=== PATIENT | female | born 1945 | race Caucasian/White ===

== ENCOUNTER 2018-03-05 16:04 | Inpatient (IN) | payer BC, MEDICARE ==
[2018-03-05 17:46] LABS: Albumin * 4.1 gm/dl (3.4-5.0); Anion Gap 13.3 mmol/L (6.8-13.8); Bilirubin, Total 0.4 mg/dL (0.0-1.1); Ca. Corrected For Albumin 9.5 mg/dL (8.4-10.2); Calcium * 9.9 mg/dL (7.9-10.9); Carbon Dioxide 30.8 mmol/L (24-32.6); Potassium 4.1 mmol/L (3.4-4.6)
[2018-03-05 18:14] LABS: Hemoglobin 13.4 gm/dL (12.5-16.0); Mean Cell Volume 87.7 fl (78-100); Mean Corpuscular Hemoglobin 29.4 pg (27-31); Mean Corpuscular Hgb Conc 33.5 g/dl (32-36); Mean Platelet Volume 11.6 fl (8-12.5); Neutrophil # 7.2 K/mm3 (1.3-6.0); Neutrophil % 72.2 % (42-75.0); Platelet Count 235 K/mm3 (150-450); Red Blood Count 4.56 M/mm3 (4.2-5.4); Red Cell Distribution Width 14.5 % (11.5-14.0)
[2018-03-05] MEDS ORDERED: DIATRIZOATE MEGLUMINE, SODIUM 30 ML BTL PO ONE (18:23)
[2018-03-05] MEDS ORDERED: DIATRIZOATE MEGLUMINE, SODIUM 30 ML BTL ONE (18:29)
--- NOTE | 2018-03-05 18:34 | ERNOTE ---
<Hugo Pierce - Last Filed: 03/05/18 18:24> Abdominal HPI - Narrative Date of Service: 03/05/18 - General Chief Complaint: Abdominal Pain Time Seen by Provider: 03/05/18 16:09 Source: patient Exam Limitations: no limitations - Immun/Allergies/Home Medications Home Medications: HOME MEDICATIONS Ascorbic Acid [Vitamin C] 1,000 mg PO DAILY 03/05/18 [Last Taken Unknown] Aspirin [Children's Aspirin] 81 mg PO DAILY 03/05/18 [Last Taken Unknown] Calcium Carbonate/Vitamin D3 [Calcium 600 + D3 Softgel] 1 each PO DAILY [Last Taken Unknown] Cholecalciferol (Vitamin D3) [Vitamin D] 400 unit PO DAILY 03/05/18 [Last Taken Unknown] Cyanocobalamin (Vitamin B-12) [Vitamin B-12] 500 mcg PO DAILY 03/05/18 [Last Taken Unknown] Insulin Degludec [Tresiba Flextouch U-100] 60 unit SQ DAILY 03/05/18 [Last Taken Unknown] Insulin Regular, Human [Novolin R] 100 unit SQ 03/05/18 [Last Taken Unknown] Levothyroxine Sodium [Synthroid] 75 mcg PO DAILY 03/05/18 [Last Taken Unknown] Losartan/Hydrochlorothiazide [Losartan-Hctz 100-25 mg Tab] 1 each PO DAILY 03/05 [Last Taken Unknown] Lovastatin [Altoprev] 80 mg PO DAILY 03/05/18 [Last Taken Unknown] Metoprolol Tartrate [Lopressor] 50 mg PO DAILY 03/05/18 [Last Taken Unknown] [place]-3 Fatty Acids/Fish Oil [Fish Oil 1,000 mg Capsule] 1 each PO DAILY [Last Taken Unknown] Omeprazole [Prilosec] 20 mg PO DAILY 03/05/18 [Last Taken Unknown] Oxybutynin Chloride [Ditropan Xl] 5 mg PO DAILY 03/05/18 [Last Taken Unknown] Pyridoxine HCl (Vitamin B6) [Vitamin B-6] 100 mg PO DAILY 03/05/18 [Last Taken Unknown] Turmeric Root Extract [Turmeric] 500 mg PO DAILY 03/05/18 [Last Taken Unknown] metFORMIN HCL [Metformin HCl] 1,000 mg PO BID 03/05/18 [Last Taken Unknown] - History of Present Illness Narrative: patient presents to the ED for abdominal pain. She relates that she has been having this for a couple of days but worse today. Because of her multiple abdominal surgeries she had called Dr Mancilla' office and has an appt but was told to go to the ER if her pain was worse. Her pain worsened today so she came to the ED. No fever or vomiting. She does have some issues with constipation but she has had a recent BM. This pain is in her mid abdomen/low abdomen. She has a hernia here but that hernia has not been bothering her. No CP or SOB. No fever. She feels this pain in her low back also. Worsened today. Nothing really seems to make it better or worse. Timing: constant, getting worse Quality: moderate Activities at Onset: none Modifying Factors - (Improves): Present: other - nothing Modifying Factors - (Worsens): Present: other - nothing Associated Symptoms: Absent: fever/chills, vomiting Prior Abdominal Problems: Absent: similar symptoms Prior Treatment: Absent: recently seen Review of Systems - Review of Systems Constitutional: Absent: fever Respiratory: Absent: shortness of breath Cardiology: Absent: chest pain Gastrointestinal/Abdominal: Present: See HPI Genitourinary: Absent: dysuria Neurological: Absent: weakness All Other Systems: All systems neg except as marked Medical History (Last Updated 03/05/18 @ 16:27 by Aravind Wilson RN) Diabetes mellitus GERD (gastroesophageal reflux disease) HTN (hypertension) History of colon cancer Hyperlipemia Hypothyroidism Umbilical hernia Surgical History: Surgical History (Last Updated 03/05/18 @ 16:27 by Aravind Wilson RN) History of cancer surgery Social History: Preferred Language [place] Physical Exam - Physical Exam General Appearance: Present: alert, no apparent distress Head Exam: Present: normal inspection, no evidence of injury Eye Exam: Normal inspection: bilateral, PERRL: bilateral Ears, Nose, Throat: Present: normal ENT inspection Neck: Present: normal inspection Respiratory: Present: no respiratory distress, normal breath sounds, no accessory muscle use, lungs clear Cardiovascular/Chest: Present: regular rate, rhythm, normal peripheral pulses Gastrointestinal/Abdominal: Present: normal bowel sounds, soft, other - there is an umbilical hernia but this is not specifically tender. No clear incarceration or strangulation. There is diffuse tendenress and firmness around this area in the mid abdomen. No guarding or rebound. No peritoneal signs Back Exam: Absent: CVA tenderness (R), CVA tenderness (L) Extremity Exam: Present: normal range of motion Neurological Exam: Present: alert, no motor/sensory deficits Skin Exam: Present: normal color, warm/dry ED Progress - Results and Orders Patient's Lab Results:: I have reviewed the patient's lab results. - Vital Signs Patient's Vital Signs:: I have reviewed the patient's vital signs. Vital Signs: Vital Signs 03/05/18 16:14 Temperature 36.4 C Pulse Rate 73 Respiratory Rate 14 Blood Pressure 216/61 H O2 Sat by Pulse Oximetry 98 - Progress/Reassessment Chief Complaint: Abdominal Pain Progress Note-Subjective: 03/05/18 18:[address] given her long intra-abdominal surgical history. CHecked out to Dr Bañuelos at shift change pending CT. - Transfer of Care Physician Sign Out: Hugo Pierce Receiving Physician: Tavo Bañuelos Pending Results: CT/MRI results Departure Clinical Impression: Partial small bowel obstruction Abdominal pain Qualifiers: Abdominal location: periumbilical Qualified Code(s): R10.33 - Periumbilical pain Urinary tract infection Qualifiers: Urinary tract infection type: acute cystitis Hematuria presence: without hematuria Qualified Code(s): N30.00 - Acute cystitis without hematuria - Departure Disposition: Still a patient Condition: Stable Referrals: Yanely Zavala FNP [Primary Care Provider] - <Tavo Bañuelos - Last Filed: 03/05/18 22:30> Medical History (Last Updated 03/05/18 @ 22:11 by Tavo Bañuelos DO) Fistula of large intestine Diabetes mellitus GERD (gastroesophageal reflux disease) HTN (hypertension) History of colon cancer Hyperlipemia Hypothyroidism Umbilical hernia Surgical History: Surgical History (Last Updated 03/05/18 @ 22:12 by Tavo Bañuelos DO) H/O ileostomy H/O resection of large bowel History of History of History of reversal of ileostomy History of cancer surgery Social History: Preferred Language [place] ED Progress - Vital Signs Vital Signs: Vital Signs 03/05/18 16:14 Temperature 36.4 C Pulse Rate 73 Respiratory Rate 14 Blood Pressure 216/61 H O2 Sat by Pulse Oximetry 98 - CT/Ultrasound CT/Ultrasound Narrative: CT abd/ pelvis with oral and IV contrast: IMPRESSION: MULTIPLE VENTRAL HERNIAS AT THE LEVEL OF THE UMBILICUS AND INFERIORLY. AGAIN, THESE CONTAIN LOOPS OF SMALL AND LARGE BOWEL WITH PARTIAL SMALL BOWEL OBSTRUCTION. Electronically signed by Hugo Balderas M.D.. - Progress/Reassessment Progress Note-Subjective: 03/05/18 22:12 CT results reviewed with patient and family. 03/05/18 22:27 Spoke with Mindy HUNG and she agrees with obs admit. Spoke with the patient and family again they also express agreement and understanding with obs admit.
[2018-03-05 20:56] LABS: Urine Bilirubin Negative (NEGATIVE); Urine Blood Negative /ul (NEGATIVE); Urine Ketone 5 mg/dL (NEGATIVE); Urine Nitrite Negative (NEGATIVE); Urine Protein 100 mg/dL (NEGATIVE); Urine Specific Gravity 1.025 SP.GR. (1.005-1.010); Urine Urobilinogen Normal (NORMAL)
[2018-03-05 21:06] LABS: Urine Appearance Cloudy (CLEAR); Urine Bacteria None Seen; Urine Color Yellow; Urine RBC None Seen /hpf (0-5); Urine WBC 25-50 /hpf (0-5)
--- NOTE | 2018-03-06 00:33 | HP ---
<Mindy Mercado - Last Filed: 03/06/18 03:54> Chief Complaint - Chief Complaint Date of Service: 03/06/18 Time of Service: 00:19 Chief Complaint: "Abdominal Pain". Source of HPI- Pt; reliable, ERP report History of Present Illness: Mrs. Cohen is a 72-yr-old [place] pt of Yan[facility] Stack[facility] with a PMH of: Anxiety, Arthritis, Asthma, Colon cancer, DM II, HTN, HLD, Lung cancer, Osteoporosis, & Rectal cancer. Pt states that around the afternoon hours today (03/05), she developed generalized abdominal pain and had a sensation of having discomfort from gas. She took milk of magnesia but got no relief. She states that she was concerned about her abdominal pain. She states that she had been advised in the past that due to multiple abdominal surgeries, she needed to be attentive to any abdominal pain symptom, and that she needed to seek medical care immediately. She denies the associated symptoms of n.v, fevers and chills. She reports that she had a normal bowel movement in the am of 03/05 and the prior day. She denies abdominal pain radiation. She had a bowel of cereal for breakfast and glucerna for lunch and was able to tolerate without any n/v and abdominal pain. However, after taking the oral contrast for abdominal CT, she started retching an hour later. She states that she had colon resection due to colon ca in 2007 with an ileostomy which was reversed [address] Mancilla at the [facility]. She has had abdominal hernia since then but states that she was not eligible for repair unless she was having complications from it (Will request for medical records). At the ED today, abdominal CT showed: partial small bowel obstruction & multiple ventral hernia at the level of umbilicus and inferiorly which contain loops of small & large bowel. Pt has not had any BMs but is passing flatus so far. She will be admitted for PSBO. I've consulted Dr. Vee on pt's case and he will evaluate the pt in am. Medical History (Last Updated 03/05/18 @ 22:11 by Tavo Bañuelos DO) Fistula of large intestine Diabetes mellitus GERD (gastroesophageal reflux disease) HTN (hypertension) History of colon cancer Hyperlipemia Hypothyroidism Umbilical hernia Surgical History: Surgical History (Last Updated 03/05/18 @ 22:12 by PERRI Harrell H/O ileostomy H/O resection of large bowel History of History of History of reversal of ileostomy History of cancer surgery Social History: Patient Lives/Resources Home Utilized Occupation Retired Preferred Language Micronesian Do you have any tenriism or Yes cultural preference? Smoking Status Former smoker Have you smoked in the past 12 No months Do you dip or chew tobacco No Review Of Systems (GEN) - Review of Systems Generalized/Overall Review: Absent: Weakness, Chills, Fever, Malaise EENTM: Absent: Eye Pain, Blurred Vision, Tearing Respiratory: Absent: Cough, Shortness of Breath, Orthopnea Cardiac: Absent: Chest Pain, Edema, Palpitations Abdominal: Present: Abdominal Pain. Absent: Nausea, Vomiting, Hematemesis, Constipation, Diarrhea, Bright blood from rectum Genitourinary: Absent: Burning, Itching, Urgency, Frequency, Dribbling, Incontinent Musculoskeletal: Absent: Joint Pain, Back Pain, Joint Swelling Neurological: Absent: Headache, Anxiety, Depressed, Emotional Problems Skin: Absent: Dryness, Lesions Endocrine: Absent: Intolerance to Cold, Increased Hunger, Increased Thirst Misc: All systems neg except as marked Allergies/Adverse Reactions: Allergies Allergy/AdvReac Type Severity Reaction Status Date / Time No Known Allergies Allergy Verified 03/06/18 01:16 Home Medications: HOME MEDICATIONS Ascorbic Acid [Vitamin C] 1,000 mg PO DAILY 03/05/18 [Last Taken 03/05/18] Aspirin [Children's Aspirin] 81 mg PO DAILY 03/05/18 [Last Taken 03/04/18] Calcium Carbonate/Vitamin D3 [Calcium 600 + D3 Softgel] 1 each PO DAILY [Last Taken 03/05/18] Cholecalciferol (Vitamin D3) [Vitamin D] 400 unit PO DAILY 03/05/18 [Last Taken 03/05/18] Cyanocobalamin (Vitamin B-12) [Vitamin B-12] 500 mcg PO DAILY 03/05/18 [Last Taken 03/05/18] Insulin Degludec [Tresiba Flextouch U-100] 60 unit SQ DAILY 03/05/18 [Last Taken Unknown] Insulin Regular, Human [Novolin R] See Protocol SQ PRN 03/05/18 [Last Taken 02/13] Levothyroxine Sodium [Synthroid] 75 mcg PO DAILY 03/05/18 [Last Taken 03/05/18] Losartan/Hydrochlorothiazide [Losartan-Hctz 100-25 mg Tab] 1 each PO DAILY 03/05 [Last Taken 03/05/18] Lovastatin [Altoprev] 80 mg PO DAILY 03/05/18 [Last Taken 03/05/18] Metoprolol Tartrate [Lopressor] 50 mg PO DAILY 03/05/18 [Last Taken 03/05/18] [place]-3 Fatty Acids/Fish Oil [Fish Oil 1,000 mg Capsule] 1 each PO DAILY [Last Taken 03/05/18] Omeprazole [Prilosec] 20 mg PO DAILY 03/05/18 [Last Taken 03/05/18] Oxybutynin Chloride [Ditropan Xl] 5 mg PO DAILY 03/05/18 [Last Taken 03/05/18] Pyridoxine HCl (Vitamin B6) [Vitamin B-6] 100 mg PO DAILY 03/05/18 [Last Taken 03/05/18] Turmeric Root Extract [Turmeric] 500 mg PO DAILY 03/05/18 [Last Taken 03/05/18] metFORMIN HCL [Metformin HCl] 1,000 mg PO BID 03/05/18 [Last Taken 03/05/18] Exam - Exam Vital Signs: Vital Signs - Last Taken Temp 36.6 C 03/05/18 22:50 Pulse 62 03/05/18 22:50 Resp 20 03/05/18 22:50 BP 159/64 H 03/05/18 22:50 Pulse Ox 97 03/05/18 22:50 Constitutional: Present: Alert, Oriented x3, Cooperative, No distress ENT Exam: Present: normal ENT inspection Eye Exam: bilateral eye: normal inspection, PERRL Neck: Present: non-tender, full range of motion, supple Back Exam: Present: normal inspection, no CVA tenderness Breasts: Present: Exam deferred Respiratory: Present: no respiratory distress, no accessory muscle use Cardiovascular/Chest: Present: normal peripheral pulses, regular rate, rhythm, no chest tenderness, no edema Abdomen: Present: tender - Lower abdomen, guarding, firm, hernia /Rectal: Present: Exam deferred Extremity: Present: normal range of motion, non-tender, normal inspection Skin Exam: Present: warm/dry, no cyanosis Lymphatic: Present: no adenopathy Neurologic: Present: alert, normal mood/affect, oriented x 3 Appearance: Present: appropriate appearance, appropriate insight Eye contact: Present: cooperative, good eye contact Thoughts: Present: normal thought pattern, no apparent hallucination Diagnostic Studies: Abnormal Lab Results 03/05/18 03/05/18 03/05/18 Range/Units 17:10 17:10 Unknown RDW 14.5 H (11.5-14.0) % Lymphocytes % 19.9 L (20-51) % Neutrophils # 7.2 H (1.3-6.0) K/mm3 Est GFR (Non-Af Amer) 58 L (60-130) mL/min Random Glucose 164 H (70-110) mg/dL Alkaline Phosphatase 38 L (50-170) U/L Urine Protein 100 H (NEGATIVE) mg/dL Prot Sulfosalicylic Acd 2+ H (0) mg/dL Ur Leukocyte Esterase 100 H (NEGATIVE) /ul Urine WBC 25-50 H (0-5) /hpf Laboratory Results WBC 10.0 K/mm3 (4.0-10.5) 03/05/18 17:10 RBC 4.56 M/mm3 (4.2-5.4) 03/05/18 17:10 Hgb 13.4 gm/dL (12.5-16.0) 03/05/18 17:10 Hct 40.0 % (37.0-47.0) 03/05/18 17:10 MCV 87.7 fl (78-100) 03/05/18 17:10 MCH 29.4 pg (27-31) 03/05/18 17:10 MCHC 33.5 g/dl (32-36) 03/05/18 17:10 RDW 14.5 % (11.5-14.0) H 03/05/18 17:10 Plt Count 235 K/mm3 (150-450) 03/05/18 17:10 MPV 11.6 fl (8-12.5) 03/05/18 17:10 Immature Gran % (Auto) 0.30 % (0.001-0.429) 03/05/18 17:10 Immature Gran # (Auto) 0.03 K/mm3 (0.000-0.0310) 03/05/18 17:10 Neutrophils % 72.2 % (42-75.0) 03/05/18 17:10 Lymphocytes % 19.9 % (20-51) L 03/05/18 17:10 Monocytes % 6.5 % (0.0-9) 03/05/18 17:10 Eosinophils % 0.8 % (0.0-3.0) 03/05/18 17:10 Basophils % 0.3 % (0.0-1.0) 03/05/18 17:10 Nucleated RBC % 0.0 k/mm3 (0-1) 03/05/18 17:10 Neutrophils # 7.2 K/mm3 (1.3-6.0) H 03/05/18 17:10 Lymphocytes # 1.99 k/mm3 (1.5-3.5) 03/05/18 17:10 Monocytes # 0.7 k/mm3 (0.0-1.0) 03/05/18 17:10 Eosinophils # 0.1 k/mm3 (0.0-0.7) 03/05/18 17:10 Absolute Basophils 0.0 k/mm3 (0.0-0.1) 03/05/18 17:10 Sodium 140 mmol/L (132-142) 03/05/18 17:10 Plasma Sodium 141 mmol/L (130-142) 03/05/18 17:10 Potassium 4.1 mmol/L (3.4-4.6) 03/05/18 17:10 Chloride 100 mmol/L (97-106) 03/05/18 17:10 Carbon Dioxide 30.8 mmol/L (24-32.6) 03/05/18 17:10 Anion Gap 13.3 mmol/L (6.8-13.8) 03/05/18 17:10 BUN 19 mg/dL (3-23) 03/05/18 17:10 Creatinine 1.00 mg/dL (0.4-1.4) 03/05/18 17:10 Est GFR (Non-Af Amer) 58 mL/min (60-130) L 03/05/18 17:10 BUN/Creatinine Ratio 19.0 (9.0-21.6) 03/05/18 17:10 Random Glucose 164 mg/dL (70-110) H 03/05/18 17:10 Calcium 9.9 mg/dL (7.9-10.9) 03/05/18 17:10 Calcium Adj for Albumin 9.5 mg/dL (8.4-10.2) 03/05/18 17:10 Total Bilirubin 0.4 mg/dL (0.0-1.1) 03/05/18 17:10 AST 28 U/L (0-48) 03/05/18 17:10 ALT 34 U/L (19-67) 03/05/18 17:10 Alkaline Phosphatase 38 U/L (50-170) L 03/05/18 17:10 Total Protein 8.0 gm/dL (6.2-8.2) 03/05/18 17:10 Albumin 4.1 gm/dl (3.4-5.0) 03/05/18 17:10 Lipase 103 U/L (73-393) 03/05/18 17:10 Urine Color Yellow 03/05/18 Unknown Urine Appearance Cloudy (CLEAR) 03/05/18 Unknown Urine pH 6.0 pH (5.0-7.0) 03/05/18 Unknown Ur Specific [place] 1.025 SP.GR. (1.005-1.010) 03/05/18 Unknown Urine Protein 100 mg/dL (NEGATIVE) H 03/05/18 Unknown Urine Glucose (UA) Negative mg/dL (NEGATIVE) 03/05/18 Unknown Urine Ketones 5 mg/dL (NEGATIVE) 03/05/18 Unknown Urine Blood Negative /ul (NEGATIVE) 03/05/18 Unknown Urine Nitrate Negative (NEGATIVE) 03/05/18 Unknown Urine Bilirubin Negative mg/dl (NEGATIVE) 03/05/18 Unknown Prot Sulfosalicylic Acd 2+ mg/dL (0) H 03/05/18 Unknown Urine Urobilinogen Normal EU/dl (NORMAL) 03/05/18 Unknown Ur Leukocyte Esterase 100 /ul (NEGATIVE) H 03/05/18 Unknown Urine RBC None seen /hpf (0-5) 03/05/18 Unknown Urine WBC 25-50 /hpf (0-5) H 03/05/18 Unknown Ur Epithelial Cells None seen /hpf (0-5) 03/05/18 Unknown Urine Bacteria None seen (NONE) 03/05/18 Unknown Urine Culture Comments Culture to follow 03/05/18 Unknown Assessment/Plan - Assessment/Plan (1) Partial small bowel obstruction Assessment: Pt is a 72-yr-old who presented with abdominal pain. She has had abdominal surgeries in the past involving colon resection due to colon cancer & Other abdominal surgeries involve and hysterectomy. She denied the associated symptoms of n/v, fevers, chills and constipation. She had a bowel movement of day of presentation and day prior. On exam, she has generalized tenderness with abdominal guarding. She is not ill -appearing and not in any distress. Lab-work was unremarkable. V.S were stable. Abdominal CT findings were consistent with PSBO. Will manage conservatively with: NPO excpet ice chips, IVF hydration, antiemetics and analgesics prn. Dr. Vee will eval in am. Problem: Acute (2) Urinary tract infection Assessment: Given rocephin at the ED. Pt is asymptomatic. Will hold off additional antibiotics until U/C results to gude further ax treatment. Problem: Acute Qualifiers: Urinary tract infection type: acute cystitis Hematuria presence: without hematuria Qualified Code(s): N30.00 - Acute cystitis without hematuria (3) HTN (hypertension) Assessment: Continue metoprolol and losartan. Problem: Chronic (4) Diabetes Assessment: Hold metformin due to contrast use. Monitor accuchech 6 h while npo, IVF with dextrose. Continue tresiba and correction SSI Problem: Chronic Qualifiers: Diabetes mellitus type: type 2 (5) Anxiety Problem: Chronic <Marshal Willams - Last Filed: 03/06/18 08:35> Medical History (Last Updated 03/05/18 @ 22:11 by Tavo Bañuelos DO) Fistula of large intestine Diabetes mellitus GERD (gastroesophageal reflux disease) HTN (hypertension) History of colon cancer Hyperlipemia Hypothyroidism Umbilical hernia Surgical History: Surgical History (Last Updated 03/05/18 @ 22:12 by Tavo Bañuelos DO) H/O ileostomy H/O resection of large bowel History of History of History of reversal of ileostomy History of cancer surgery Social History: Patient Lives/Resources Home Utilized Occupation Retired Preferred Language Micronesian Do you have any tenriism or Yes cultural preference? Smoking Status Former smoker Have you smoked in the past 12 No months Do you dip or chew tobacco No Exam - Exam Vital Signs: Vital Signs - Last Taken Temp 36.4 C 03/06/18 07:46 Pulse 62 03/06/18 08:04 Resp 18 03/06/18 07:46 BP 124/35 03/06/18 07:46 Pulse Ox 98 03/06/18 07:46 Diagnostic Studies: Abnormal Lab Results 03/05/18 03/05/18 03/05/18 Range/Units 17:10 17:10 Unknown RDW 14.5 H (11.5-14.0) % Neutrophils % (42-75.0) % Lymphocytes % 19.9 L (20-51) % Neutrophils # 7.2 H (1.3-6.0) K/mm3 Lymphocytes # (1.5-3.5) k/mm3 Chloride (97-106) mmol/L Est GFR (Non-Af Amer) 58 L (60-130) mL/min Random Glucose 164 H (70-110) mg/dL Alkaline Phosphatase 38 L (50-170) U/L Urine Protein 100 H (NEGATIVE) mg/dL Prot Sulfosalicylic Acd 2+ H (0) mg/dL Ur Leukocyte Esterase 100 H (NEGATIVE) /ul Urine WBC 25-50 H (0-5) /hpf 03/06/18 03/06/18 Range/Units 05:00 05:00 RDW 14.5 H (11.5-14.0) % Neutrophils % 86.4 H (42-75.0) % Lymphocytes % 6.1 L (20-51) % Neutrophils # (1.3-6.0) K/mm3 Lymphocytes # 0.42 L (1.5-3.5) k/mm3 Chloride 95 L (97-106) mmol/L Est GFR (Non-Af Amer) 45 L D (60-130) mL/min Random Glucose 366 H D (70-110) mg/dL Alkaline Phosphatase (50-170) U/L Urine Protein (NEGATIVE) mg/dL Prot Sulfosalicylic Acd (0) mg/dL Ur Leukocyte Esterase (NEGATIVE) /ul Urine WBC (0-5) /hpf Microbiology 03/05/18 Unknown Urine Culture - Preliminary Urine,Voided No Growth Laboratory Results WBC 6.9 K/mm3 (4.0-10.5) D 03/06/18 05:00 RBC 4.68 M/mm3 (4.2-5.4) 03/06/18 05:00 Hgb 13.1 gm/dL (12.5-16.0) 03/06/18 05:00 Hct 40.7 % (37.0-47.0) 03/06/18 05:00 MCV 87.0 fl (78-100) 03/06/18 05:00 MCH 28.0 pg (27-31) 03/06/18 05:00 MCHC 32.2 g/dl (32-36) 03/06/18 05:00 RDW 14.5 % (11.5-14.0) H 03/06/18 05:00 Plt Count 219 K/mm3 (150-450) 03/06/18 05:00 MPV 11.0 fl (8-12.5) 03/06/18 05:00 Immature Gran % (Auto) 0.10 % (0.001-0.429) 03/06/18 05:00 Immature Gran # (Auto) 0.01 K/mm3 (0.000-0.0310) 03/06/18 05:00 Neutrophils % 86.4 % (42-75.0) H 03/06/18 05:00 Lymphocytes % 6.1 % (20-51) L 03/06/18 05:00 Monocytes % 7.2 % (0.0-9) 03/06/18 05:00 Eosinophils % 0.1 % (0.0-3.0) 03/06/18 05:00 Basophils % 0.1 % (0.0-1.0) 03/06/18 05:00 Nucleated RBC % 0.0 k/mm3 (0-1) 03/06/18 05:00 Neutrophils # 6.0 K/mm3 (1.3-6.0) 03/06/18 05:00 Lymphocytes # 0.42 k/mm3 (1.5-3.5) L 03/06/18 05:00 Monocytes # 0.5 k/mm3 (0.0-1.0) 03/06/18 05:00 Eosinophils # 0.0 k/mm3 (0.0-0.7) 03/06/18 05:00 Absolute Basophils 0.0 k/mm3 (0.0-0.1) 03/06/18 05:00 Sodium 134 mmol/L (132-142) 03/06/18 05:00 Plasma Sodium 138 mmol/L (130-142) 03/06/18 05:00 Potassium 3.9 mmol/L (3.4-4.6) 03/06/18 05:00 Chloride 95 mmol/L (97-106) L 03/06/18 05:00 Carbon Dioxide 30.0 mmol/L (24-32.6) 03/06/18 05:00 Anion Gap 12.9 mmol/L (6.8-13.8) 03/06/18 05:00 BUN 22 mg/dL (3-23) 03/06/18 05:00 Creatinine 1.26 mg/dL (0.4-1.4) 03/06/18 05:00 Est GFR (Non-Af Amer) 45 mL/min (60-130) L D 03/06/18 05:00 BUN/Creatinine Ratio 17.5 (9.0-21.6) 03/06/18 05:00 Random Glucose 366 mg/dL (70-110) H D 03/06/18 05:00 Calcium 9.0 mg/dL (7.9-10.9) 03/06/18 05:00 Calcium Adj for Albumin 9.5 mg/dL (8.4-10.2) 03/05/18 17:10 Total Bilirubin 0.4 mg/dL (0.0-1.1) 03/05/18 17:10 AST 28 U/L (0-48) 03/05/18 17:10 ALT 34 U/L (19-67) 03/05/18 17:10 Alkaline Phosphatase 38 U/L (50-170) L 03/05/18 17:10 Total Protein 8.0 gm/dL (6.2-8.2) 03/05/18 17:10 Albumin 4.1 gm/dl (3.4-5.0) 03/05/18 17:10 Lipase 103 U/L (73-393) 03/05/18 17:10 Urine Color Yellow 03/05/18 Unknown Urine Appearance Cloudy (CLEAR) 03/05/18 Unknown Urine pH 6.0 pH (5.0-7.0) 03/05/18 Unknown Ur Specific [place] 1.025 SP.GR. (1.005-1.010) 03/05/18 Unknown Urine Protein 100 mg/dL (NEGATIVE) H 03/05/18 Unknown Urine Glucose (UA) Negative mg/dL (NEGATIVE) 03/05/18 Unknown Urine Ketones 5 mg/dL (NEGATIVE) 03/05/18 Unknown Urine Blood Negative /ul (NEGATIVE) 03/05/18 Unknown Urine Nitrate Negative (NEGATIVE) 03/05/18 Unknown Urine Bilirubin Negative mg/dl (NEGATIVE) 03/05/18 Unknown Prot Sulfosalicylic Acd 2+ mg/dL (0) H 03/05/18 Unknown Urine Urobilinogen Normal EU/dl (NORMAL) 03/05/18 Unknown Ur Leukocyte Esterase 100 /ul (NEGATIVE) H 03/05/18 Unknown Urine RBC None seen /hpf (0-5) 03/05/18 Unknown Urine WBC 25-50 /hpf (0-5) H 03/05/18 Unknown Ur Epithelial Cells None seen /hpf (0-5) 03/05/18 Unknown Urine Bacteria None seen (NONE) 03/05/18 Unknown Urine Culture Comments Culture to follow 03/05/18 Unknown
[2018-03-06] MEDS ORDERED: DEXTROSE 5%-NORMAL SALINE 1,000 ML IV PRN (00:37)
[2018-03-06] MEDS ORDERED: ONDANSETRON HCL/PF 2 MG/ML VIAL IV PRN (00:37)
[2018-03-06] MEDS ORDERED: HYDROmorphone HCL 1 MG/ML DISP.SYRIN IV PRN (00:37)
[2018-03-06 05:25] LABS: Hematocrit 40.7 % (37.0-47.0); Hemoglobin 13.1 gm/dL (12.5-16.0); Mean Corpuscular Hgb Conc 32.2 g/dl (32-36); Neutrophil % 86.4 % (42-75.0); Platelet Count 219 K/mm3 (150-450); Red Blood Count 4.68 M/mm3 (4.2-5.4); Red Cell Distribution Width 14.5 % (11.5-14.0); White Blood Count 6.9 K/mm3 (4.0-10.5)
[2018-03-06 05:29] LABS: Anion Gap 12.9 mmol/L (6.8-13.8); BUN/Creatinine Ratio 17.5 (9.0-21.6); Estimated Creat Clear 28.3; Potassium 3.9 mmol/L (3.4-4.6)
[2018-03-06] MEDS: INSULIN LISPRO 100 UNITS/ML VIAL SC SCH ×4 (05:58→16:42)
[2018-03-06] MEDS: LEVOTHYROXINE SODIUM 75 MCG TABLET PO SCH (06:56)
[2018-03-06] MEDS: PANTOPRAZOLE SODIUM 40 MG in NORMAL SALINE 100 ML IV SCH (06:56)
[2018-03-06] MEDS: METOPROLOL TARTRATE 25 MG TABLET PO SCH (08:56)
[2018-03-06] MEDS: HYDROCHLOROTHIAZIDE 25 MG TABLET PO SCH (08:56)
[2018-03-06] MEDS: LOSARTAN POTASSIUM 50 MG TABLET PO SCH (08:56)
[2018-03-06] MEDS ORDERED: HYDROCHLOROTHIAZIDE PO SCH (09:00)
[2018-03-06] MEDS ORDERED: INSULIN GLARGINE,HUM.REC.ANLOG 100 UNITS/ML VIAL SC SCH ×2 (09:00→21:00)
[2018-03-06] MEDS ORDERED: [UNRECOGNIZED DRUG - OTHER] PO SCH (09:00)
[2018-03-06] MEDS ORDERED: LOSARTAN PO SCH (09:00)
[2018-03-06] MEDS ORDERED: ENOXAPARIN SODIUM 30 MG/0.3 ML SYRG SC SCH (16:45)
--- NOTE | 2018-03-06 19:32 | CONS ---
[facility] - General Date of Service: 03/06/18 Source: patient, family, RN/MD, RN notes reviewed, old records Exam Limitations: no limitations - History of Present Illness Timing/Duration: 24 hours Severity: severe Modifying Factors - (Worsens): Reports: eating, movement Modifying Factors - (Improves): Reports: rest, other - having bowel movement Associated Symptoms: loss of appetite, nausea, vomiting Allergies/Adverse Reactions: Allergies No Known Allergies Allergy (Verified 03/06/18 01:16) Home Medications: Home Medications Medication Instructions Recorded Last Taken Ascorbic Acid [Vitamin C] 1,000 mg PO DAILY 03/05/18 03/05/18 Aspirin [Children's Aspirin] 81 mg PO DAILY 03/05/18 03/04/18 Calcium Carbonate/Vitamin D3 1 each PO DAILY 03/05/18 03/05/18 [Calcium 600 + D3 Softgel] Cholecalciferol (Vitamin D3) 400 unit PO DAILY 03/05/18 03/05/18 [Vitamin D] Cyanocobalamin (Vitamin B-12) 500 mcg PO DAILY 03/05/18 03/05/18 [Vitamin B-12] Insulin Degludec [Tresiba 60 unit SQ DAILY 03/05/18 Unknown Flextouch U-100] Insulin Regular, Human [Novolin R] See Protocol SQ PRN 03/05/18 03/05/18 Levothyroxine Sodium [Synthroid] 75 mcg PO DAILY 03/05/18 03/05/18 Losartan/Hydrochlorothiazide 1 each PO DAILY 03/05/18 03/05/18 [Losartan-Hctz 100-25 mg Tab] Lovastatin [Altoprev] 80 mg PO DAILY 03/05/18 03/05/18 Metoprolol Tartrate [Lopressor] 50 mg PO DAILY 03/05/18 03/05/18 [place]-3 Fatty Acids/Fish Oil [Fish 1 each PO DAILY 03/05/18 03/05/18 Oil 1,000 mg Capsule] Omeprazole [Prilosec] 20 mg PO DAILY 03/05/18 03/05/18 Oxybutynin Chloride [Ditropan Xl] 5 mg PO DAILY 03/05/18 03/05/18 Pyridoxine HCl (Vitamin B6) 100 mg PO DAILY 03/05/18 03/05/18 [Vitamin B-6] Turmeric Root Extract [Turmeric] 500 mg PO DAILY 03/05/18 03/05/18 metFORMIN HCL [Metformin HCl] 1,000 mg PO BID 03/05/18 03/05/18 Procedures Closed [endoscopic] biopsy of rectum (02/10/08) Esophagogastroduodenoscopy [EGD] with closed biopsy (02/10/08) Excision of semilunar cartilage of knee (05/13/03) Insertion of totally implantable vascular access device [VAD] (03/23/08) Other local excision or destruction of lesion of joint, knee (05/13/03) Medications - Medications Current Medications: Current Medications Enoxaparin Sodium (Lovenox) [address] [facility] Stop: 04/05/18 16:46 Last Admin: 03/06/18 17:09 Dose: 30 mg Hydrochlorothiazide (Hydrodiuril) [address] [facility] Stop: 04/05/18 09:01 Last Admin: 03/06/18 08:56 Dose: 25 mg Hydromorphone HCl (Dilaudid) 1 mg IV Q2H PRN PRN Reason: Moderate Pain (pain scale 4-6) Stop: 04/05/18 00:38 Last Admin: 03/06/18 01:23 Dose: 1 mg Pantoprazole Sodium 40 mg/ (Sodium Chloride) 100 mls @ 400 mls/hr IV QDAC [facility] Stop: 04/05/18 07:01 Last Infusion: 03/06/18 08:27 Dose: Infused Insulin Human Lispro (Humalog) 0 units [facility]; Protocol Stop: 04/05/18 06:01 Last Admin: 03/06/18 16:42 Dose: 4 units Levothyroxine Sodium (Synthroid) [address] [facility] Stop: 04/05/18 07:01 Last Admin: 03/06/18 06:56 Dose: 75 mcg Losartan Potassium (Cozaar) [address] [facility] Stop: 04/05/18 09:01 Last Admin: 03/06/18 08:56 Dose: 100 mg Metoprolol Tartrate (Lopressor) [address] [facility] Stop: 04/05/18 09:01 Last Admin: 03/06/18 08:56 Dose: 50 mg Ondansetron HCl (Zofran) 4 mg IV Q4H PRN PRN Reason: Nausea Stop: 04/05/18 00:38 Last Admin: 03/06/18 01:22 Dose: 4 mg Review of Systems - Review of Systems Generalized/Overall Review: Present: Weakness. Absent: Chills, Fever EENTM: Present: No Symptoms Reported Respiratory: Present: No Symptoms Reported Cardiac: Present: No Symptoms Reported Abdominal: Present: Other - She has long history of alternating constipation and diarrhea with bloating. She will take senna or stool softener and then have to take Imodium. She had multiple loose stools after th po gastroview for the scan and now she does not have the pain (like labor) she was having, just a little sore Genitourinary: Present: No Symptoms Reported, Other - urine C&S pending Musculoskeletal: Present: No Symptoms Reported Neurological: Present: No Symptoms Reported Skin: Present: No Symptoms Reported Physical Examination - Exam Vital Signs: Vital Signs - Last Taken Temp 36.5 C 03/06/18 13:40 Pulse 54 L 03/06/18 14:00 Resp 18 03/06/18 13:40 BP 114/45 03/06/18 13:40 Pulse Ox 94 03/06/18 13:40 O2 Oxygen Delivery Method Room Air Constitutional: Present: Alert, Oriented x3, Cooperative, No distress ENT Exam: Present: normal ENT inspection Neck: Present: normal inspection, other - healied thyroid surgery scar, short thick neck Respiratory: Present: no respiratory distress Cardiovascular/Chest: Present: regular rate, rhythm Abdomen: Present: other - Very obese with large area of lower abdominal herniation with bowel directly under the skin. Soft without guarding or peritoneal signs. 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 tested, no motor/sensory deficits Appearance: Present: appropriate appearance, appropriate insight Eye contact: Present: cooperative, good eye contact Thoughts: Present: normal thought pattern - Results and Findings: Lab/Microbiology results last 24 hrs: Abnormal/Pending Laboratory Last 24 HRS 03/06/18 03/06/18 03/05/18 05:00 05:00 Unknown RDW 14.5 H Neutrophils % 86.4 H Lymphocytes % 6.1 L Lymphocytes # 0.42 L Chloride 95 L Est GFR (Non-Af Amer) 45 L D Random Glucose 366 H D Urine Protein 100 H Prot Sulfosalicylic Acd 2+ H Ur Leukocyte Esterase 100 H Urine WBC 25-50 H Culture 03/05/18 Unknown Urine Culture - Preliminary Urine,Voided No Growth - Assessments/Findings (1) Incisional hernia of anterior abdominal wall without obstruction or gangrene Diagnosis(s): Currently there is no obstruction and VS/WBC normal indicating no acute process. She has had 5 operations and the defect is large with probable loss of domain and presumed adhesions. It is not clear that this could be repaired even with mesh or component separation. Her BMI of 46.7 and attendant co-morbidities would make any surgical procedure high risk. Certainly if in the future she needs an operation , any intervention should only be done at a tertiary care center. Explained the hernia situation to her using diagrams. Bowel function and the mechanism of action of Benefiber and Miralax was explained along with the problem using laxatives and Imodium. Outlined a trial of Benefiber/Miralax that she can trial and titrate on her own. She lives alone and does "not always cook" so will ask for Dietitian to consult with her for suggestions. Problem: Chronic
[2018-03-07] MEDS: INSULIN LISPRO 100 UNITS/ML VIAL SC SCH ×3 (00:10→11:59)
--- NOTE | 2018-03-07 05:02 | DS ---
<Marshal Willams - Last Filed: 03/07/18 12:48> Results and Findings: Lab Pending Results 03/05/18 17:10: WBC 10.0, RBC 4.56, Hgb 13.4, Hct 40.0, MCV 87.7, MCH 29.4, MCHC 33.5, RDW 14.5 H, Plt Count 235, MPV 11.6, Immature Gran % (Auto) 0.30, Immature Gran # (Auto) 0.03, Neutrophils % 72.2, Lymphocytes % 19.9 L, Monocytes % 6.5, Eosinophils % 0.8, Basophils % 0.3, Nucleated RBC % 0.0, Neutrophils # 7.2 H, Lymphocytes # 1.99, Monocytes # 0.7, Eosinophils # 0.1, Absolute Basophils 0.0 03/05/18 17:10: Sodium 140, Plasma Sodium 141, Potassium 4.1, Chloride 100, Carbon Dioxide 30.8, Anion Gap 13.3, BUN 19, Creatinine 1.00, Est GFR (Non-Af Amer) 58 L, BUN/Creatinine Ratio 19.0, Random Glucose 164 H, Calcium 9.9, Calcium Adj for Albumin 9.5, Total Bilirubin 0.4, AST 28, ALT 34, Alkaline Phosphatase 38 L, Total Protein 8.0, Albumin 4.1, Lipase 103 03/05/18 : Urine Color Yellow, Urine Appearance Cloudy, Urine pH 6.0, Ur Specific [place] 1.025, Urine Protein 100 H, Urine Glucose (UA) Negative, Urine Ketones 5, Urine Blood Negative, Urine Nitrate Negative, Urine Bilirubin Negative, Prot Sulfosalicylic Acd 2+ H, Urine Urobilinogen Normal, Ur Leukocyte Esterase 100 H, Urine RBC None seen, Urine WBC 25-50 H, Ur Epithelial Cells None seen, Urine Bacteria None seen, Urine Culture Comments Culture to follow 03/06/18 05:00: WBC 6.9 D, RBC 4.68, Hgb 13.1, Hct 40.7, MCV 87.0, MCH 28.0, MCHC 32.2, RDW 14.5 H, Plt Count 219, MPV 11.0, Immature Gran % (Auto) 0.10, Immature Gran # (Auto) 0.01, Neutrophils % 86.4 H, Lymphocytes % 6.1 L, Monocytes % 7.2, Eosinophils % 0.1, Basophils % 0.1, Nucleated RBC % 0.0, Neutrophils # 6.0, Lymphocytes # 0.42 L, Monocytes # 0.5, Eosinophils # 0.0, Absolute Basophils 0.0 03/06/18 05:00: Sodium 134, Plasma Sodium 138, Potassium 3.9, Chloride 95 L, Carbon Dioxide 30.0, Anion Gap 12.9, BUN 22, Creatinine 1.26, Est GFR (Non-Af Amer) 45 L D, BUN/Creatinine Ratio 17.5, Random Glucose 366 H D, Calcium 9.0 Disposition: Home self-care Condition: Stable Referrals: Yanely Zavala FNP [Primary Care Provider] - Problem Oriented Discharge Instructions to Patient/Family: Small Bowel Obstruction, [id number] Additional Patient Instructions (free text): -Pt to f/u with her provider as needed, return to ER as needed. Prescriptions (Any new or edited meds): Polyethylene Glycol 3350 [Miralax] 17 gm PO DAILY PRN #2 bottle PRN Reason: Constipation Polyethylene Glycol 3350 [Miralax] 17 gm PO DAILY #2 bottle Complete Home Medications List: Complete Home Medication List: Ascorbic Acid [Vitamin C] 1,000 mg PO DAILY 03/05/18 Aspirin [Children's Aspirin] 81 mg PO DAILY 03/05/18 Calcium Carbonate/Vitamin D3 [Calcium 600 + Vit D 400 Softgl] 1 each PO DAILY Cholecalciferol (Vitamin D3) [Vitamin D3] 400 unit PO DAILY 03/05/18 Cyanocobalamin (Vitamin B-12) [Vitamin B-12] 500 mcg PO DAILY 03/05/18 Insulin Degludec [Tresiba Flextouch U-100] 60 unit SQ DAILY 03/05/18 Insulin Regular, Human [Novolin R] See Protocol SQ PRN 03/05/18 Levothyroxine Sodium [Synthroid] 75 mcg PO DAILY 03/05/18 Losartan/Hydrochlorothiazide [Losartan-Hctz 100-25 mg Tab] 1 each PO DAILY 03/05 Lovastatin [Altoprev] 80 mg PO DAILY 03/05/18 Metoprolol Tartrate [Lopressor] 50 mg PO DAILY 03/05/18 [place]-3 Fatty Acids/Fish Oil [Fish Oil 1,000 mg Capsule] 1 each PO DAILY Omeprazole [Prilosec] 20 mg PO DAILY 03/05/18 Oxybutynin Chloride [Ditropan Xl] 5 mg PO DAILY 03/05/18 Pyridoxine HCl (Vitamin B6) [Vitamin B-6] 100 mg PO DAILY 03/05/18 Turmeric Root Extract [Turmeric] 500 mg PO DAILY 03/05/18 metFORMIN HCL [Metformin HCl] 1,000 mg PO BID 03/05/18 Polyethylene Glycol 3350 [Miralax] 17 gm PO DAILY #2 bottle 03/07/18 Polyethylene Glycol 3350 [Miralax] 17 gm PO DAILY PRN #2 bottle 03/07/18 <Mindy Mercado - Last Filed: 03/07/18 20:01> (1) Partial small bowel obstruction Problem: Acute (2) Urinary tract infection Problem: Acute Qualifiers: Urinary tract infection type: acute cystitis Hematuria presence: without hematuria Qualified Code(s): N30.00 - Acute cystitis without hematuria (3) HTN (hypertension) Problem: Chronic (4) Diabetes Problem: Chronic Qualifiers: Diabetes mellitus type: type 2 (5) Anxiety Problem: Chronic Description of Stay: Admission date:03/05/18 Discharge date:03/07/18 Hospital stay description. Mrs. Cohen is a 72-yr-old WF pt of Yanely Zavala with a PMH of: Anxiety, Arthritis, Asthma, Colon cancer, DM II, HTN, HLD, Lung cancer, Osteoporosis, & Rectal cancer. Pt stated that around the afternoon hours on (03/05), she developed generalized abdominal pain and had a sensation of having discomfort from gas. She took milk of magnesia but got no relief. She stated that she was concerned about her abdominal pain. She stated that she had been advised in the past that due to multiple abdominal surgeries, she needed to be attentive to any abdominal pain symptom, and that she needed to seek medical care immediately. She denied the associated symptoms of n.v, fevers and chills. She reported that she had a normal bowel movement in the am of 03/05 and the prior day. She denied abdominal pain radiation. She had a bowel of cereal for breakfast and glucerna for lunch and was able to tolerate without any n/v and abdominal pain on DOA. However, after taking the oral contrast for abdominal CT at the ED, she started retching an hour later. She stated that she had colon resection due to colon ca in 2007 with an ileostomy which was [address] Mancilla at the [facility]. She had abdominal hernia since then but was informed that she was not eligible for repair unless she was having complications from it. At the ED, the abdominal CT showed: partial small bowel obstruction & multiple ventral hernia at the level of umbilicus and inferiorly which contain loops of small & large bowel. she was admitted inpatient for PSBO.Surgery (Dr. Vee) consulted on pt's case.Pt symptoms was managed conservatively by: NPO, IVF hydration, antiemetics and analgesics prn. She passed large stool on the night of admission. Her V.S and WBC remained in the N.R. Her diet was slowly advanced and she tolerated without abdominal pain & n/ v. According to Dr. Vee, pt's ventral hernia repair would be difficult to accomplish given her existing comorbidites and high BMI, but in the event that she needed one, it could only be done a tertiary care center. Pt received teaching on maintaining bowel funcion with miralax or benefiber. She was advised to follow-up with pcp and determined to be in a stable state to be discharged home. Procedures Performed: none Results and Findings: Pending Mircobiology Results 03/05/18 Unknown Urine,Voided Urine Culture - Preliminary No Growth Lab Pending Results 03/05/18 17:10: WBC 10.0, RBC 4.56, Hgb 13.4, Hct 40.0, MCV 87.7, MCH 29.4, MCHC 33.5, RDW 14.5 H, Plt Count 235, MPV 11.6, Immature Gran % (Auto) 0.30, Immature Gran # (Auto) 0.03, Neutrophils % 72.2, Lymphocytes % 19.9 L, Monocytes % 6.5, Eosinophils % 0.8, Basophils % 0.3, Nucleated RBC % 0.0, Neutrophils # 7.2 H, Lymphocytes # 1.99, Monocytes # 0.7, Eosinophils # 0.1, Absolute Basophils 0.0 03/05/18 17:10: Sodium 140, Plasma Sodium 141, Potassium 4.1, Chloride 100, Carbon Dioxide 30.8, Anion Gap 13.3, BUN 19, Creatinine 1.00, Est GFR (Non-Af Amer) 58 L, BUN/Creatinine Ratio 19.0, Random Glucose 164 H, Calcium 9.9, Calcium Adj for Albumin 9.5, Total Bilirubin 0.4, AST 28, ALT 34, Alkaline Phosphatase 38 L, Total Protein 8.0, Albumin 4.1, Lipase 103 03/05/18 : Urine Color Yellow, Urine Appearance Cloudy, Urine pH 6.0, Ur Specific [place] 1.025, Urine Protein 100 H, Urine Glucose (UA) Negative, Urine Ketones 5, Urine Blood Negative, Urine Nitrate Negative, Urine Bilirubin Negative, Prot Sulfosalicylic Acd 2+ H, Urine Urobilinogen Normal, Ur Leukocyte Esterase 100 H, Urine RBC None seen, Urine WBC 25-50 H, Ur Epithelial Cells None seen, Urine Bacteria None seen, Urine Culture Comments Culture to follow 03/06/18 05:00: WBC 6.9 D, RBC 4.68, Hgb 13.1, Hct 40.7, MCV 87.0, MCH 28.0, MCHC 32.2, RDW 14.5 H, Plt Count 219, MPV 11.0, Immature Gran % (Auto) 0.10, Immature Gran # (Auto) 0.01, Neutrophils % 86.4 H, Lymphocytes % 6.1 L, Monocytes % 7.2, Eosinophils % 0.1, Basophils % 0.1, Nucleated RBC % 0.0, Neutrophils # 6.0, Lymphocytes # 0.42 L, Monocytes # 0.5, Eosinophils # 0.0, Absolute Basophils 0.0 03/06/18 05:00: Sodium 134, Plasma Sodium 138, Potassium 3.9, Chloride 95 L, Carbon Dioxide 30.0, Anion Gap 12.9, BUN 22, Creatinine 1.26, Est GFR (Non-Af Amer) 45 L D, BUN/Creatinine Ratio 17.5, Random Glucose 366 H D, Calcium 9.0 Discharge Location: Home Discharge Activity: Activity as tolerated Discharge Diet: Consistent carbs
[2018-03-07] MEDS: LEVOTHYROXINE SODIUM 75 MCG TABLET PO SCH (07:37)
[2018-03-07] MEDS: PANTOPRAZOLE SODIUM 40 MG in NORMAL SALINE 100 ML IV SCH (07:37)
[2018-03-07] MEDS: METOPROLOL TARTRATE 25 MG TABLET PO SCH (09:47)
[2018-03-07] MEDS: HYDROCHLOROTHIAZIDE 25 MG TABLET PO SCH (09:47)
[2018-03-07] MEDS: LOSARTAN POTASSIUM 50 MG TABLET PO SCH (09:48)
[2018-03-07 15:56] VITALS: BP 153/58
== END 2018-03-07 15:55 | disposition home or self-care (01) | DRG 389 ==
LOC: ER 16:04 → MS 16:04 → OBSVTOIN 22:41 → INTOOBSV 22:41 → MS 23:05
PROVIDERS: ADMIT Nurse Practitioner; ATTEND Internal Medicine
DX: R53.1 Weakness
CPT/HCPCS: 36415; 74177; 80048; 80053; 81001; 83690; 85025; 87086; 96365; 99285; J2405

== ENCOUNTER 2019-05-16 11:16 | Inpatient (IN) ==
--- NOTE | 2019-05-16 11:41 | ERNOTE ---
Abdominal HPI - Narrative Date of Service: 05/16/19 - General Chief Complaint: Abdominal Pain Time Seen by Provider: 05/16/19 11:41 Source: patient Exam Limitations: no limitations - Immun/Allergies/Home Medications Allergies/Adverse Reactions: Allergies No Known Allergies Allergy (Verified 05/16/19 11:34) Home Medications: HOME MEDICATIONS Ascorbic Acid [Vitamin C] 1,000 mg PO DAILY 03/05/18 [Last Taken 03/05/18] Calcium Carbonate/Vitamin D3 [Calcium 600 + Vit D 400 Softgl] 1 ea PO DAILY 03/05/18 [Last Taken 03/05/18] Cholecalciferol (Vitamin D3) [Vitamin D3] 400 unit PO DAILY 03/05/18 [Last Taken 03/05/18] Cyanocobalamin (Vitamin B-12) [Vitamin B-12] 500 mcg PO DAILY 03/05/18 [Last Taken 03/05/18] Insulin Degludec [Tresiba Flextouch U-100] 60 unit SQ DAILY 03/05/18 [Last Taken Unknown] Insulin Regular, Human [Novolin R] See Protocol SQ DAILY PRN 03/05/18 [Last Taken 03/05/18] Levothyroxine Sodium [Synthroid] 75 mcg PO DAILY 03/05/18 [Last Taken 03/05/18] Losartan/Hydrochlorothiazide [Losartan-Hctz 100-25 mg Tab] 1 ea PO DAILY 03/05/18 [Last Taken 03/05/18] Metoprolol Tartrate [Lopressor] 50 mg PO DAILY 03/05/18 [Last Taken 03/05/18] [place]-3 Fatty Acids/Fish Oil [Fish Oil 1,000 mg Capsule] 1 ea PO DAILY 03/05/18 [Last Taken 03/05/18] Omeprazole [Prilosec] 20 mg PO DAILY 03/05/18 [Last Taken 03/05/18] Oxybutynin Chloride [Ditropan Xl] 5 mg PO DAILY 03/05/18 [Last Taken 03/05/18] Pyridoxine HCl (Vitamin B6) [Vitamin B-6] 100 mg PO DAILY 03/05/18 [Last Taken 03/05/18] Turmeric Root Extract [Turmeric] 500 mg PO DAILY 03/05/18 [Last Taken 03/05/18] metFORMIN HCL [Metformin HCl] 1,000 mg PO BID 03/05/18 [Last Taken 03/05/18] lovastatin 40 mg tablet 40 mg PO BID 04/16/18 [Last Taken Unknown] psyllium seed (sugar) oral powder 1 tbs PO DAILY 04/16/18 [Last Taken Unknown] - Pain Score Pain Score #1 Pain Score: 3 Abdominal Pain Onset Location: generalized abdomen Pain Radiation: no radiation - History of Present Illness Narrative: The patient is a 74 year old female who presents for intermittent low abdominal tenderness which has been present since this am at 0200. There are associated symptoms of increased belching and abdominal distention. The patient reports pain to diffuse low abdomen, 3/10. There are no alleviating factors. There are no aggravating factors. Previous treatments have included: none. The past medical history includes: Osteoarthritis, colorectal cancer, lung cancer, hypothyroid, HLD, GERD, HTN and DM. The social history is positive for former smoker. The patient has had no ill contacts. Patient reports dx of colorectal ca in 2007 with treatment with bowel resection, chemotherapy and radiation. Patient reports taking Metamucil and Miralax daily to aid with chronic constipation. Patient states that she began having some diarrheal stool later so she treated it with Immodium, taking a total of 5 tabs on Sunday. Patient states she did not have a bowel movement on but felt well. Patient states she awaoke around 0200 or 0300 this am with abdominal discomfort, fullness and inability to pass flatulence. Patient reports colonoscopy on November 17, 2018 by , [facility]. Review of Systems - Review of Systems Constitutional: Present: no symptoms reported. Absent: fever, fatigue EYE: Present: no symptoms reported ENT: Present: no symptoms reported. Absent: ear pain, nasal drainage, sore throat Respiratory: Present: no symptoms reported. Absent: shortness of breath, cough Cardiology: Present: no symptoms reported. Absent: chest pain Gastrointestinal/Abdominal: Present: nausea, abdominal pain. Absent: vomiting, diarrhea Genitourinary: Present: no symptoms reported. Absent: dysuria, decreased urinary output Musculoskeletal: Present: no symptoms reported Skin: Present: no symptoms reported. Absent: rash All Other Systems: All systems neg except as marked Medical History (Updated 05/16/19 @ 17:45 by Aleksandra Valdivia MD) Osteoarthritis of knees, bilateral (Chronic) Onset Date: Unknown Knee pain, bilateral (Acute) Onset Date: Unknown Diabetes mellitus Fistula of large intestine GERD (gastroesophageal reflux disease) HTN (hypertension) History of colon cancer Hyperlipemia Hypothyroidism Injury of meniscus of knee Onset Date: 05/13/03 Lung cancer Onset Date: Unknown Osteoporosis Onset Date: Unknown Rectal bleeding Onset Date: 01/11/08 Rectal malignant neoplasm Onset Date: 02/10/08 Dr. Vee 10cm Umbilical hernia Surgical History: Surgical History (Updated 05/16/19 @ 17:45 by Aleksandra Valdivia MD) H/O colonoscopy Onset Date: 02/10/08 w/ biopsy. Dr. VeeTeuiu-iwxaomodmbxzbt-dzdwhbzqzkeu H/O ileostomy H/O resection of large bowel H/O tubal ligation Onset Date: Unknown History of History of History of cancer surgery History of reversal of ileostomy Hx of appendectomy Onset Date: Unknown Hx of cataract extraction Onset Date: Unknown bilateral Removal of goiter Onset Date: 2016 S/P left knee arthroscopy Onset Date: 05/13/03 Dr. Staley-lateral meniscectomy,chondroplasty of the lateral femoral condyle, debridement of acute tear of the anterior cruciate ligament Family History: Family History (Updated 04/12/18 @ 11:26 by Isiah Rai RN) Mother Lung disease Diabetes Heart disease CVA (cerebral vascular accident) Kidney disease Father Lymphoma Brother Hypertension Hypothyroidism Sister Hypertension Diabetes Colon cancer Hypothyroidism Social History: (Last Reviewed 05/16/19 @ 13:27 by STEVE Soares) Social History: Marital status: / household members: none current occupational status: retired current occupation: retired Highest education level completed: GED or equivalent Service: No Tobacco: Smoking Status: Former smoker Alcohol: alcohol intake: never Substance Use: substance use type: does not use Dietary Habits: caffeine: Yes Type: carbonated beverages Physical Exam - Physical Exam General Appearance: Present: wd/wn, alert, mild distress Head Exam: Present: normal inspection Eye Exam: Normal inspection: bilateral Neck: Present: normal inspection Respiratory: Present: no respiratory distress, normal breath sounds, no accessory muscle use, lungs clear Cardiovascular/Chest: Present: regular rate, rhythm, no murmur Gastrointestinal/Abdominal: Present: soft, tenderness - RLQ and suprapubic, abnormal bowel sounds - hyperactive, distended - abdominal obesity, hernia - umbilical, reducible, soft, nontender. Absent: guarding Neurological Exam: Present: alert, oriented, normal mood/affect, no motor/sensory deficits Skin Exam: Present: normal color, warm/dry Progress - Date and Time Seen: Date and Time: 05/16/19 13:[address] for additional evaluation of abdominal pain as well as inability to pass stool or flatulence. 05/16/19 16:[address] discussed with for directed plan of care. 05/16/19 16:21 Discussed case with , carlos NG and admit to medicine. 05/16/19 16:40 Case discussed with julianne Huizar to admit. - Results and Orders Patient's Lab Results:: I have reviewed the patient's lab results. - Vital Signs Patient's Vital Signs:: I have reviewed the patient's vital signs. Vital Signs: Vital Signs 05/16/19 11:17 Temperature 36.5 C Pulse Rate 76 Respiratory Rate 16 Blood Pressure 152/82 H O2 Sat by Pulse Oximetry 96 - X-Ray X-Ray #1 X-Ray: abdomen Interpretation: Reviewed by me X-Ray #2 X-Ray: chest Interpretation: Reviewed by me X-ray Comments: NG tube in proper placement in gastric bubble. - CT/Ultrasound CT/Ultrasound Narrative: IMPRESSION: 1. Small bowel obstruction, with transition point at the mid segment, associated with a large ventral hernia containing multiple loops of small bowel as well as a short segment of the transverse colon. 2. There is no evidence for perforation or intra-abdominal/pelvic abscess. 3. There is a lesion at the lower pole right kidney, which is somewhat concerning for potential neoplasm. Other considerations also include focal pyelonephritis. Recommend clinical correlation, and consider further evaluation of the kidneys by MRI of the abdomen without and with contrast renal mass protocol. If MRI is contraindicated, recommend CT of the abdomen without and with contrast renal mass protocol. Also consider urology consultation/referral. 4. Additional comments and details are as above. Ordering provider STEVE Soares was informed regarding the above results by telephone on 05/16/2019 4:10 PM. Electronically signed by Eva Mclaughlin M.D.. - Progress/Reassessment Chief Complaint: Abdominal Pain Departure Clinical Impression: Small bowel obstruction Diabetes mellitus Qualifiers: Diabetes mellitus type: type 2 Diabetes mellitus correction insulin use: without emt intermediate use Diabetes mellitus complication status: with other specified complication Qualified Code(s): E11.69 - Type 2 diabetes mellitus with other specified complication - Departure Disposition: Still a patient Condition: Stable
[2019-05-16 12:16] LABS: Hematocrit 40.7 % (37.0-47.0); Hemoglobin 13.6 gm/dL (12.5-16.0); Mean Cell Volume 87.9 fl (78-100); Mean Corpuscular Hemoglobin 29.4 pg (27-31); Mean Corpuscular Hgb Conc 33.4 g/dl (32-36); Mean Platelet Volume 10.9 fl (8-12.5); Neutrophil # 10.6 K/mm3 (1.3-6.0); Neutrophil % 85.1 % (42-75.0); Platelet Count 271 K/mm3 (150-450); Red Blood Count 4.63 M/mm3 (4.2-5.4); Red Cell Distribution Width 14.8 % (11.5-14.0); White Blood Count 12.4 K/mm3 (4.0-10.5)
[2019-05-16 12:22] LABS: Urine Bilirubin Negative (NEGATIVE); Urine Blood Negative /ul (NEGATIVE); Urine Ketone Negative (NEGATIVE); Urine Nitrite Negative (NEGATIVE); Urine Protein 15 mg/dL (NEGATIVE); Urine Urobilinogen Normal (NORMAL); Urine pH 5.5 pH (5.0-7.0)
[2019-05-16 12:25] LABS: Albumin * 3.9 gm/dl (3.4-5.0); Anion Gap 12.9 mmol/L (6.8-13.8); BUN/Creatinine Ratio 20.9 (9.0-21.6); Bilirubin, Total 0.4 mg/dL (0.0-1.1); Ca. Corrected For Albumin 9.4 mg/dL (8.4-10.2); Calcium * 9.6 mg/dL (7.9-10.9); Carbon Dioxide 29.9 mmol/L (24-32.6); Potassium 3.8 mmol/L (3.4-4.6); Total Protein 7.7 gm/dL (6.2-8.2)
[2019-05-16 12:36] LABS: Urine Appearance Slightly Cloudy (CLEAR); Urine Color Yellow
[2019-05-16 12:37] LABS: Urine Bacteria TRACE; Urine RBC None Seen /hpf (0-5)
[2019-05-16] MEDS ORDERED: NORMAL SALINE 500 ML IV PRN (13:22)
[2019-05-16] MEDS ORDERED: DIATRIZOATE MEGLUMINE, SODIUM 30 ML BTL PO ONE (13:22)
[2019-05-16] MEDS ORDERED: ONDANSETRON HCL/PF 2 MG/ML VIAL ONE ×2 (13:33→17:44)
[2019-05-16] MEDS ORDERED: ONDANSETRON HCL/PF 2 MG/ML VIAL IV ONE ×2 (13:33→17:45)
[2019-05-16] MEDS ORDERED: NORMAL SALINE 1,000 ML IV ONE (17:16)
--- NOTE | 2019-05-16 17:45 | HP ---
Chief Complaint - Chief Complaint Date of Service: 05/16/19 Time of Service: 17:05 Chief Complaint: Abdominal pain x1 day History of Present Illness: 74-year-old female with a past medical history of diabetes mellitus, hypertension, GERD, colon cancer status post resection, hypothyroidism, hypertension, hyperlipidemia, osteoporosis, osteoarthritis presents with complaints of abdominal pain x1 day. She states 2 days ago she began having episodes of diarrhea. She took several doses of loperamide with within several hours, she consumed a total of 5 pills and the diarrhea resolved. The next day she had no problems with diarrhea and did not have a bowel movement. Around 3:00 this morning she woke up to use the bathroom and experienced severe abdominal pain. The pain was intermittent and diffuse throughout the entire abdomen. She denies any nausea or vomiting at home. She then presented to the emergency department. Abdominal x-ray showed mild retained stool. CT abdomen pelvis showed small bowel obstruction with transition point at the mid segment, associated with a large ventral hernia containing multiple loops of small bowel as well as a short segment of the transverse colon. She is being admitted for small bowel obstruction. Surgery, Dr. Vee has been consulted and is okay with monitoring the patient with an NG tube at our facility. Medical History (Updated 05/16/19 @ 17:23 by STEVE Soares) Osteoarthritis of knees, bilateral (Acute) Onset Date: Unknown Knee pain, bilateral (Acute) Onset Date: Unknown Diabetes mellitus Fistula of large intestine GERD (gastroesophageal reflux disease) HTN (hypertension) History of colon cancer Hyperlipemia Hypothyroidism Injury of meniscus of knee Onset Date: 05/13/03 Lung cancer Onset Date: Unknown Osteoporosis Onset Date: Unknown Rectal bleeding Onset Date: 01/11/08 Rectal malignant neoplasm Onset Date: 02/10/08 Dr. Vee 10cm Umbilical hernia Surgical History: Surgical History (Updated 04/12/18 @ 11:32 by Isiah Rai RN) H/O colonoscopy Onset Date: 02/10/08 w/ biopsy. Dr. VeeQwpwv-saczvkhhywtzhh-thtxrwgexbiv H/O ileostomy H/O resection of large bowel H/O tubal ligation Onset Date: Unknown History of History of History of cancer surgery History of reversal of ileostomy Hx of appendectomy Onset Date: Unknown Hx of cataract extraction Onset Date: Unknown bilateral Removal of goiter Onset Date: 2016 S/P left knee arthroscopy Onset Date: 05/13/03 Dr. Staley-lateral meniscectomy,chondroplasty of the lateral femoral condyle, debridement of acute tear of the anterior cruciate ligament Family History: Family History (Updated 04/12/18 @ 11:26 by Isiah Rai RN) Mother Lung disease Diabetes Heart disease CVA (cerebral vascular accident) Kidney disease Father Lymphoma Brother Hypertension Hypothyroidism Sister Hypertension Diabetes Colon cancer Hypothyroidism Social History: (Last Reviewed 05/16/19 @ 13:27 by STEVE Soares) Social History: Marital status: / household members: none current occupational status: retired current occupation: retired Highest education level completed: GED or equivalent Service: No Tobacco: Smoking Status: Former smoker Alcohol: alcohol intake: never Substance Use: substance use type: does not use Dietary Habits: caffeine: Yes Type: carbonated beverages Review Of Systems (GEN) - Review of Systems Generalized/Overall Review: Absent: Fever Respiratory: Absent: Shortness of Breath Cardiac: Absent: Chest Pain Abdominal: Present: Nausea, Vomiting, Abdominal Pain Misc: All systems neg except as marked Immunizations: IMMUNIZATION HX Immunizations Up to Date Yes History of Influenza Vaccine Yes Hx Pneumococcal Vaccination Yes Allergies/Adverse Reactions: Allergies Allergy/AdvReac Type Severity Reaction Status Date / Time No Known Allergies Allergy Verified 05/16/19 11:34 Home Medications: HOME MEDICATIONS Ascorbic Acid [Vitamin C] 1,000 mg PO DAILY 03/05/18 [Last Taken 03/05/18] Calcium Carbonate/Vitamin D3 [Calcium 600 + Vit D 400 Softgl] 1 ea PO DAILY 03/05/18 [Last Taken 03/05/18] Cholecalciferol (Vitamin D3) [Vitamin D3] 400 unit PO DAILY 03/05/18 [Last Taken 03/05/18] Cyanocobalamin (Vitamin B-12) [Vitamin B-12] 500 mcg PO DAILY 03/05/18 [Last Taken 03/05/18] Insulin Degludec [Tresiba Flextouch U-100] 60 unit SQ DAILY 03/05/18 [Last Taken Unknown] Insulin Regular, Human [Novolin R] See Protocol SQ DAILY PRN 03/05/18 [Last Taken 03/05/18] Levothyroxine Sodium [Synthroid] 75 mcg PO DAILY 03/05/18 [Last Taken 03/05/18] Losartan/Hydrochlorothiazide [Losartan-Hctz 100-25 mg Tab] 1 ea PO DAILY 03/05/18 [Last Taken 03/05/18] Metoprolol Tartrate [Lopressor] 50 mg PO DAILY 03/05/18 [Last Taken 03/05/18] [place]-3 Fatty Acids/Fish Oil [Fish Oil 1,000 mg Capsule] 1 ea PO DAILY 03/05/18 [Last Taken 03/05/18] Omeprazole [Prilosec] 20 mg PO DAILY 03/05/18 [Last Taken 03/05/18] Oxybutynin Chloride [Ditropan Xl] 5 mg PO DAILY 03/05/18 [Last Taken 03/05/18] Pyridoxine HCl (Vitamin B6) [Vitamin B-6] 100 mg PO DAILY 03/05/18 [Last Taken 03/05/18] Turmeric Root Extract [Turmeric] 500 mg PO DAILY 03/05/18 [Last Taken 03/05/18] metFORMIN HCL [Metformin HCl] 1,000 mg PO BID 03/05/18 [Last Taken 03/05/18] lovastatin 40 mg tablet 40 mg PO BID 04/16/18 [Last Taken Unknown] psyllium seed (sugar) oral powder 1 tbs PO DAILY 04/16/18 [Last Taken Unknown] Exam - Exam Vital Signs: Vital Signs - Last Taken Temp 36.5 C 05/16/19 11:17 Pulse 65 05/16/19 16:01 Resp 20 05/16/19 16:01 BP 162/66 H 05/16/19 16:01 Pulse Ox 92 L 05/16/19 16:01 Constitutional: Present: Alert, Cooperative, Well developed, Well nourished, No distress, Elderly, Morbidly obese ENT Exam: Present: hearing grossly normal, moist mucous membranes Eye Exam: bilateral eye: normal inspection, PERRL, EOMI Neck: Present: non-tender, trachea midline. Absent: lymphadenopathy (R), lymphadenopathy (L) Back Exam: Present: normal inspection, no CVA tenderness Respiratory: Present: lungs clear, no respiratory distress, no accessory muscle use, No wheezing. Absent: crackles, rhonchi Cardiovascular/Chest: Present: normal peripheral pulses, regular rate, rhythm, no edema, no murmur Peripheral Pulses: dorsalis-pedis (R): 1+, dorsalis-pedis (L): 1+ Abdomen: Present: soft, distended, hernia, hypoactive Extremity: Present: non-tender, no pedal edema Skin Exam: Present: normal color, warm/dry Neurologic: Present: alert, normal mood/affect Appearance: Present: appropriate appearance, appropriate insight Eye contact: Present: cooperative, good eye contact Thoughts: Present: normal thought pattern, normal mood /affect Diagnostic Studies: Abnormal Lab Results 05/16/19 05/16/19 05/16/19 Range/Units 12:00 12:08 12:08 WBC 12.4 H (4.0-10.5) K/mm3 RDW 14.8 H (11.5-14.0) % Immature Gran # (Auto) 0.04 H (0.000-0.0310) K/mm3 Neutrophils % 85.1 H (42-75.0) % Lymphocytes % 8.8 L (20-51) % Neutrophils # 10.6 H (1.3-6.0) K/mm3 Lymphocytes # 1.09 L (1.5-3.5) k/mm3 Est GFR (Non-Af Amer) 52 L (60-130) mL/min Random Glucose 210 H (70-110) mg/dL Alkaline Phosphatase 47 L (50-170) U/L Urine Protein 15 H (NEGATIVE) mg/dL Ur Leukocyte Esterase 25 H (NEGATIVE) /ul Urine WBC 5-10 H (0-5) /hpf Laboratory Results WBC 12.4 K/mm3 (4.0-10.5) H 05/16/19 12:08 RBC 4.63 M/mm3 (4.2-5.4) 05/16/19 12:08 Hgb 13.6 gm/dL (12.5-16.0) 05/16/19 12:08 Hct 40.7 % (37.0-47.0) 05/16/19 12:08 MCV 87.9 fl (78-100) 05/16/19 12:08 MCH 29.4 pg (27-31) 05/16/19 12:08 MCHC 33.4 g/dl (32-36) 05/16/19 12:08 RDW 14.8 % (11.5-14.0) H 05/16/19 12:08 Plt Count 271 K/mm3 (150-450) 05/16/19 12:08 MPV 10.9 fl (8-12.5) 05/16/19 12:08 Immature Gran % (Auto) 0.30 % (0.001-0.429) 05/16/19 12:08 Immature Gran # (Auto) 0.04 K/mm3 (0.000-0.0310) H 05/16/19 12:08 85.1 % (42-75.0) H 05/16/19 12:08 8.8 % (20-51) L 05/16/19 12:08 5.1 % (0.0-9) 05/16/19 12:08 0.4 % (0.0-3.0) 05/16/19 12:08 0.3 % (0.0-1.0) 05/16/19 12:08 Nucleated RBC % 0.0 k/mm3 (0-1) 05/16/19 12:08 10.6 K/mm3 (1.3-6.0) H 05/16/19 12:08 1.09 k/mm3 (1.5-3.5) L 05/16/19 12:08 0.6 k/mm3 (0.0-1.0) 05/16/19 12:08 0.1 k/mm3 (0.0-0.7) 05/16/19 12:08 Absolute Basophils 0.0 k/mm3 (0.0-0.1) 05/16/19 12:08 Sodium 138 mmol/L (132-142) 05/16/19 12:08 140 mmol/L (130-142) 05/16/19 12:08 Potassium 3.8 mmol/L (3.4-4.6) 05/16/19 12:08 Chloride 99 mmol/L (97-106) 05/16/19 12:08 Carbon Dioxide 29.9 mmol/L (24-32.6) 05/16/19 12:08 12.9 mmol/L (6.8-13.8) 05/16/19 12:08 BUN 23 mg/dL (3-23) 05/16/19 12:08 1.10 mg/dL (0.4-1.4) 05/16/19 12:08 Est GFR (Non-Af Amer) 52 mL/min (60-130) L 05/16/19 12:08 20.9 (9.0-21.6) 05/16/19 12:08 210 mg/dL (70-110) H 05/16/19 12:08 Calcium 9.6 mg/dL (7.9-10.9) 05/16/19 12:08 Calcium Adj for Albumin 9.4 mg/dL (8.4-10.2) 05/16/19 12:08 0.4 mg/dL (0.0-1.1) 05/16/19 12:08 AST 28 U/L (0-48) 05/16/19 12:08 ALT 30 U/L (19-67) 05/16/19 12:08 47 U/L (50-170) L 05/16/19 12:08 7.7 gm/dL (6.2-8.2) 05/16/19 12:08 3.9 gm/dl (3.4-5.0) 05/16/19 12:08 Amylase 47 U/L (25-115) 05/16/19 12:08 76 U/L (73-393) 05/16/19 12:08 Yellow 05/16/19 12:00 Slightly cloudy (CLEAR) 05/16/19 12:00 5.5 pH (5.0-7.0) 05/16/19 12:00 Ur Specific [place] 1.020 SP.GR. (1.005-1.010) 05/16/19 12:00 15 mg/dL (NEGATIVE) H 05/16/19 12:00 Negative mg/dL (NEGATIVE) 05/16/19 12:00 Negative mg/dL (NEGATIVE) 05/16/19 12:00 Negative /ul (NEGATIVE) 05/16/19 12:00 Negative (NEGATIVE) 05/16/19 12:00 Negative mg/dl (NEGATIVE) 05/16/19 12:00 Prot Sulfosalicylic Acd 1+ mg/dL (0) 05/16/19 12:00 Normal EU/dl (NORMAL) 05/16/19 12:00 Ur Leukocyte Esterase 25 /ul (NEGATIVE) H 05/16/19 12:00 None seen /hpf (0-5) 05/16/19 12:00 5-10 /hpf (0-5) H 05/16/19 12:00 Ur Epithelial Cells 0-5 /hpf (0-5) 05/16/19 12:00 Trace (NONE) 05/16/19 12:00 Culture to follow 05/16/19 12:00 Assessment/Plan - Narrative Narrative: 74-year-old female with a past medical history of diabetes mellitus, hypertension, GERD, colon cancer status post resection, hypothyroidism, hypertension, hyperlipidemia, osteoporosis, osteoarthritis presents with complaints of abdominal pain x1 day. CT abdomen pelvis showed small bowel obstruction with transition point at the mid segment, associated with a large ventral hernia containing multiple loops of small bowel as well as a short segment of the transverse colon. She is being admitted for small bowel obstruction. Surgery, Dr. Vee has been consulted and is okay with monitoring the patient with an NG tube at our facility. Plan #1 keep patient n.p.o. #2 continue with NG tube, co-managed by surgery #3 resume home medications for comorbidities once she is able to tolerate oral intake #4 DVT prophylaxis with Lovenox 40 mg daily - Assessment/Plan (1) Small bowel obstruction Problem: Acute (2) Osteoarthritis of knees, bilateral Problem: Chronic (3) HTN (hypertension) Problem: Chronic Qualifiers: Hypertension type: essential hypertension Qualified Code(s): I10 - Essential (primary) hypertension (4) Diabetes Problem: Chronic Qualifiers: Diabetes mellitus type: type 2 Diabetes mellitus rodent exterminator insulin use: without rodent exterminator use Diabetes mellitus complication status: with other specified complication Qualified Code(s): E11.69 - Type 2 diabetes mellitus with other specified complication (5) HLD (hyperlipidemia) Problem: Chronic Qualifiers: Hyperlipidemia type: unspecified Qualified Code(s): E78.5 - Hyperlipidemia, unspecified (6) GERD (gastroesophageal reflux disease) Problem: Chronic Qualifiers: Esophagitis presence: esophagitis presence not specified Qualified Code(s): K21.9 - Gastro-esophageal reflux disease without esophagitis
[2019-05-16] MEDS: ENOXAPARIN SODIUM 40 MG/0.4 ML SYRG SC SCH (22:27)
[2019-05-16] MEDS ORDERED: NORMAL SALINE 1,000 ML IV PRN (22:42)
[2019-05-17] MEDS ORDERED: PHENOL 180 SPRAY BTL MM PRN (05:21)
[2019-05-17] MEDS: PANTOPRAZOLE SODIUM 40 MG in NORMAL SALINE 100 ML IV SCH (05:53)
[2019-05-17 06:19] LABS: Hematocrit 39.7 % (37.0-47.0); Mean Cell Volume 88.4 fl (78-100); Mean Corpuscular Hgb Conc 32.7 g/dl (32-36); Mean Platelet Volume 11.1 fl (8-12.5); Neutrophil # 5.1 K/mm3 (1.3-6.0); Neutrophil % 70.7 % (42-75.0); Platelet Count 252 K/mm3 (150-450); Red Blood Count 4.49 M/mm3 (4.2-5.4); Red Cell Distribution Width 14.9 % (11.5-14.0); White Blood Count 7.3 K/mm3 (4.0-10.5)
[2019-05-17 06:44] LABS: Albumin * 3.3 gm/dl (3.4-5.0); Anion Gap 14.8 mmol/L (6.8-13.8); BUN/Creatinine Ratio 20.5 (9.0-21.6); Bilirubin, Total 0.7 mg/dL (0.0-1.1); Ca. Corrected For Albumin 9.7 mg/dL (8.4-10.2); Calcium * 9.5 mg/dL (7.9-10.9); Carbon Dioxide 26.8 mmol/L (24-32.6); Potassium 4.6 mmol/L (3.4-4.6)
[2019-05-17] MEDS: POLYETHYLENE GLYCOL 3350 119 GM BTL PO SCH (13:18)
--- NOTE | 2019-05-17 14:00 | CONS ---
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 She was subsequently referred to oncology/radiation oncology at [facility] and underwent chemotherapy radiation therapy with a subsequent low anterior resection. Since that time she has had a series of 5 abdominal operations. She has a very large low midline incisional hernia and ongoing problems with alternating constipation and diarrhea. She had an admission here in February 2018 with partial small bowel obstruction which responded to nonoperative management. She also has a history of ongoing GERD with severe gastritis on her EGD in 2007. Recently she was going to a wedding and so she placed a pressure dressing over the umbilical portion of her hernia so that it did not protrude. She did develop some skin irritation. She started having diarrhea 2 days ago and took 5 Imodium. Yesterday she did not move her bowels and then when she went to go developed severe lower abdominal pain "like labor". She presented to the emergency room. Her hernia is tender. Her white blood cell count is elevated. CT scan shows dilated small bowel with a transition zone in the incisional hernia which also contains a portion of the transverse colon. Additionally, she underwent a surveillance colonoscopy 3 weeks [address] performed by Dr[address] Mancilla at [facility]. She had some clips placed. Timing/Duration: other - 2 days Severity: moderate Modifying Factors - (Worsens): Reports: eating Modifying Factors - (Improves): Reports: rest Associated Symptoms: nausea, vomiting Allergies/Adverse Reactions: Allergies No Known Allergies Allergy (Verified 05/16/19 11:34) Home Medications: Home Medications Medication Instructions Recorded Last Taken Ascorbic Acid [Vitamin C] 1,000 mg PO DAILY 03/05/18 03/05/18 Calcium Carbonate/Vitamin D3 1 ea PO DAILY 03/05/18 03/05/18 [Calcium 600 + Vit D 400 Softgl] Cholecalciferol (Vitamin D3) 400 unit PO DAILY 03/05/18 03/05/18 [Vitamin D3] Cyanocobalamin (Vitamin B-12) 500 mcg PO DAILY 03/05/18 03/05/18 [Vitamin B-12] Insulin Degludec [Tresiba 60 unit SQ DAILY 03/05/18 Unknown Flextouch U-100] Insulin Regular, Human [Novolin R] See Protocol SQ DAILY PRN 03/05/18 03/05/18 Levothyroxine Sodium [Synthroid] 75 mcg PO DAILY 03/05/18 03/05/18 Losartan/Hydrochlorothiazide 1 ea PO DAILY 03/05/18 03/05/18 [Losartan-Hctz 100-25 mg Tab] Metoprolol Tartrate [Lopressor] 50 mg PO DAILY 03/05/18 03/05/18 [place]-3 Fatty Acids/Fish Oil [Fish 1 ea PO DAILY 03/05/18 03/05/18 Oil 1,000 mg Capsule] Omeprazole [Prilosec] 20 mg PO DAILY 03/05/18 03/05/18 Oxybutynin Chloride [Ditropan Xl] 5 mg PO DAILY 03/05/18 03/05/18 Pyridoxine HCl (Vitamin B6) 100 mg PO DAILY 03/05/18 03/05/18 [Vitamin B-6] metFORMIN HCL [Metformin HCl] 1,000 mg PO BID 03/05/18 03/05/18 lovastatin 40 mg tablet 80 mg PO BID 04/16/18 Unknown Aspirin [Aspirin Chewable] 81 mg PO DAILY 05/16/19 Unknown Polyethylene Glycol 3350 [Miralax] 17 gm PO HS 05/16/19 Unknown Psyllium Husk (with Sugar) 575 gm PO HS 05/16/19 Unknown [Metamucil Powder] Procedures Closed [endoscopic] biopsy of rectum (02/10/08) Esophagogastroduodenoscopy [EGD] with closed biopsy (02/10/08) Excision of semilunar cartilage of knee (05/13/03) Insertion of totally implantable vascular access device [VAD] (03/23/08) Other local excision or destruction of lesion of joint, knee (05/13/03) Medications - Medications Current Medications: Current Medications See home med list Review of Systems - Review of Systems Generalized/Overall Review: Present: Malaise, Weight gain. Absent: Chills, Fever EENTM: Present: No Symptoms Reported Respiratory: Absent: Cough, Shortness of Breath Cardiac: Absent: Chest Pain, Palpitations Abdominal: Present: Nausea, Abdominal Pain, Other - Burping and reflux Genitourinary: Present: No Symptoms Reported Musculoskeletal: Present: Joint Pain - Chronic knee pain Neurological: Present: No Symptoms Reported Skin: Present: No Symptoms Reported Physical Examination - Exam Vital Signs: Vital Signs - Last Taken Temp 36.5 05/16/19 16:01 Pulse 65 05/16/19 16:01 Resp 20 05/16/19 16:01 BP 162/66 H 05/16/19 16:01 Pulse Ox 92 05/16/19 16:01 O2 Oxygen Delivery Method Room Air Constitutional: Present: Alert, Oriented x3, Cooperative, Mild distress, Morbidly obese ENT Exam: Present: normal ENT inspection Eye Exam: bilateral eye: normal inspection Neck: Present: full range of motion, normal inspection Breasts: Present: Exam deferred Respiratory: Present: no respiratory distress Cardiovascular/Chest: Present: regular rate, rhythm Abdomen: Present: other - Very obese. Visible protrusion at the umbilicus with erythema of the overlying skin and a linear crusting abrasion transverse above the umbilicus from previous dressing. The bowel at the umbilicus is easily compressed. There is a very large eventration/incisional hernia under her low midline incision and pannus. The herniated material is mostly soft with a firm knuckle of presumably colon. Mildly tender. 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 271,000 platelets. Random glucose 210. GFR 52. Urinalysis shows specific gravity of 10.[address] scan of the abdomen and pelvis reveals a large incisional hernia containing herniated small bowel and transverse colon. There is a transition zone within the hernia - Assessments/Findings (1) Small bowel obstruction Diagnosis(s): She has a large low midline eventration/incisional hernia containing small bowel with a transition zone and a portion of transverse colon. 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 She also has a long history of severe GERD symptoms and gastritis. She has had 5 operations, the defect is very large, and there is probably loss of abdominal domain and adhesions. It is not clear that this could be repaired even with mesh or component separation. Her BMI of 46.3 and attendant comorbidities would make any surgical procedure very high risk. Such surgery should only be entertained at a tertiary care center. RECOMMENDATION: I would recommend admission with nonoperative management with nasogastric tube placement and IV fluids, serial abdominal exams and repeat abdominal x-ray in the morning. Problem: Acute
--- NOTE | 2019-05-17 14:17 | PN ---
Subjective - Date and Time Seen Date: 05/17/19 Time: 14:10 Subjective Narrative: She was admitted through the emergency room last night for small bowel obstruction. She has a very large ventral incisional hernia. She has long- standing alternating constipation and diarrhea and had taken 5 Imodium prior to developing her abdominal pain. She was admitted for nasogastric decompression with IV fluids. She feels markedly improved and has had 2 small bowel movements. Repeat flat and upright x-rays revealed no obstructive pattern and CT contrast has passed into the colon. Objective Objective Narrative: Her white blood cell count has decreased to normal. Her vital signs have been stable - Review of Systems Generalized/Overall Review: Denies: Chills, Fever EENTM: Reports: No Symptoms Reported, Other - Sore throat from the nasogastric tube Respiratory: Denies: Cough Cardiac: Denies: Chest Pain, Palpitations Abdominal: Reports: Other - Her abdomen feels much better. She is a little "sore" but markedly improved Genitourinary Symptoms: Reports: No Symptoms Reported Musculoskeletal Complaints: Reports: No Symptoms Reported Neurological: Reports: No Symptoms Reported Skin: Reports: No Symptoms Reported - Vitals Vitals: Last Vital Signs Temp 37.0 C 05/17/19 10:00 Pulse 84 05/17/19 10:00 Resp 20 05/17/19 10:00 BP 159/68 H 05/17/19 10:00 Pulse Ox 96 05/17/19 10:00 - Abnormal Lab Findings Abnormal Lab Findings: Abnormal Lab Results 05/17/19 05/17/19 Range/Units 06:00 06:00 RDW 14.9 H (11.5-14.0) % Lymphocytes % 17.6 L (20-51) % Monocytes % 10.6 H (0.0-9) % Lymphocytes # 1.28 L (1.5-3.5) k/mm3 Anion Gap 14.8 H (6.8-13.8) mmol/L Random Glucose 196 H (70-110) mg/dL AST 56 H (0-48) U/L Alkaline Phosphatase 40 L (50-170) U/L Albumin 3.3 L (3.4-5.0) gm/dl - EKG/Xray Findings Interpretation: Reviewed by me - Exam Constitutional: Present: Alert, Oriented x3, Cooperative, No distress, Morbidly obese ENT Exam: Present: normal ENT inspection Neck: Present: full range of motion, normal inspection Respiratory: Present: no respiratory distress Cardiovascular/Chest: Present: regular rate, rhythm Abdomen: Present: other - She is soft and generally nontender with no percussion or rebound tenderness. The erythema on the periumbilical skin is improved. The herniated material is very soft and the knuckle of colon previously palpated is much smaller. 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 Valdivia. I would recommend a dose of MiraLAX down the nasogastric tube with a trial clamp so that if she is nauseated the tube can be reconnected. If she tolerates this, the tube can be removed and she may start liquids. I had a long discussion with the patient about the mechanism of action of Benefiber and MiraLAX and how she can titrate this in the future. I will continue to follow her, and if she tolerates a trial tube clamping/clear liquid/advanced diet in the morning, she potentially could be discharged home tomorrow - Problems/Diagnosis (1) Small bowel obstruction Problem: Acute
--- NOTE | 2019-05-17 14:58 | PN ---
Subjective - Date and Time Seen Date: 05/17/19 Time: 10:00 Subjective Narrative: She states she feels better today, she had 2 bowel movements this morning and is passing gas. She denies nausea and vomiting. Denies abdominal pain. Objective - Review of Systems Generalized/Overall Review: Denies: Fever Respiratory: Denies: Shortness of Breath Cardiac: Denies: Chest Pain Abdominal: Denies: Nausea, Vomiting, Abdominal Pain Misc: All systems neg except as marked - Vitals Vitals: Last Vital Signs Temp 36.8 C 05/17/19 14:33 Pulse 75 05/17/19 14:33 Resp 18 05/17/19 14:33 BP 171/77 H 05/17/19 14:33 Pulse Ox 95 05/17/19 14:33 - Abnormal Lab Findings Abnormal Lab Findings: Abnormal Lab Results 05/17/19 05/17/19 Range/Units 06:00 06:00 RDW 14.9 H (11.5-14.0) % Lymphocytes % 17.6 L (20-51) % Monocytes % 10.6 H (0.0-9) % Lymphocytes # 1.28 L (1.5-3.5) k/mm3 Anion Gap 14.8 H (6.8-13.8) mmol/L Random Glucose 196 H (70-110) mg/dL AST 56 H (0-48) U/L Alkaline Phosphatase 40 L (50-170) U/L Albumin 3.3 L (3.4-5.0) gm/dl - Exam Constitutional: Present: Alert, Cooperative, Well developed, Well nourished, No distress, Elderly ENT Exam: Present: hearing grossly normal Neck: Present: non-tender, supple, trachea midline. Absent: lymphadenopathy (R), lymphadenopathy (L) Respiratory: Present: lungs clear, no respiratory distress, no accessory muscle use, No wheezing. Absent: crackles, rhonchi Cardiovascular/Chest: Present: normal peripheral pulses, regular rate, rhythm, no edema, no murmur Abdomen: Present: Normal bowel sounds, soft, nontender, nondistended, obese, hernia - Large periumbilical hernia Extremity: Present: no pedal edema Skin Exam: Present: normal color, warm/dry Neurologic: Present: alert, normal mood/affect Appearance: Present: appropriate appearance, appropriate insight Eye contact: Present: cooperative Thoughts: Present: normal mood /affect Assessment/Plan Plan Narrative: 74-year-old female with a past medical history of diabetes mellitus, hypertension, GERD, colon cancer status post resection, hypothyroidism, hypertension, hyperlipidemia, osteoporosis, osteoarthritis presents with complaints of abdominal pain x1 day. CT abdomen pelvis showed small bowel obstruction with transition point at the mid segment, associated with a large ventral hernia containing multiple loops of small bowel as well as a short segment of the transverse colon. She is being admitted for small bowel obstruction. Dr. Vee repeated the abdominal x-ray and it showed passage of the contrast into the colon. He has recommended clamping the tube and starting MiraLAX. Plan #[address] Vee recommendations, we will clamp the NG tube in place MiraLAX into the tube. If she tolerates this well we can advance to a clear liquid diet for dinner. Continue to advance diet as tolerated. #2 encourage ambulation #3 VTE prophylaxis with SCDs because she states she is allergic to anticoagulation and does not remember which one. #4 DC planning for tomorrow #5 once tolerating an oral diet resume home medications for comorbidities. 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
[2019-05-17] MEDS: ENOXAPARIN SODIUM 40 MG/0.4 ML SYRG SC SCH (17:21)
[2019-05-18] MEDS ORDERED: ACETAMINOPHEN 325 MG TABLET PO PRN (03:01)
[2019-05-18] MEDS: PANTOPRAZOLE SODIUM 40 MG in NORMAL SALINE 100 ML IV SCH (04:51)
[2019-05-18] MEDS: POLYETHYLENE GLYCOL 3350 119 GM BTL PO SCH (09:46)
--- NOTE | 2019-05-18 11:17 | PN ---
Subjective - Date and Time Seen Date: 05/18/19 Time: 11:11 Subjective Narrative: She feels much better overall. She is tolerated a liquid diet and moved her bowels. She states her mid abdomen is still "a little sore" but better Objective - Review of Systems Generalized/Overall Review: Reports: No Symptoms Reported. Denies: Chills, Fever EENTM: Reports: No Symptoms Reported Respiratory: Reports: No Symptoms Reported Cardiac: Reports: No Symptoms Reported Abdominal: Reports: Other - She is tolerating liquids and is moved her bowels again Genitourinary Symptoms: Reports: No Symptoms Reported Musculoskeletal Complaints: Reports: No Symptoms Reported Neurological: Reports: No Symptoms Reported Skin: Reports: No Symptoms Reported - Vitals Vitals: Last Vital Signs Temp 36.9 C 05/18/19 10:52 Pulse 66 05/18/19 10:52 Resp 16 05/18/19 10:52 BP 131/54 05/18/19 10:52 Pulse Ox 96 05/18/19 10:52 - Exam Constitutional: Present: Alert, Oriented x3, Cooperative, No distress, Morbidly obese ENT Exam: Present: normal ENT inspection Neck: Present: full range of motion, normal inspection Respiratory: Present: no respiratory distress Cardiovascular/Chest: Present: regular rate, rhythm Abdomen: Present: other - Obese, soft, the area of herniated intestine is soft and much less tender /Rectal: Present: Exam deferred Extremity: Present: normal range of motion, normal inspection Skin Exam: Present: warm/dry 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 She will continue to have difficulty due to the large ventral incisional hernia as well as her post low anterior resection syndrome. I again discussed a regular use of Metamucil twice daily and MiraLAX twice daily----with titration. I explained that while some use of Imodium can be necessary after a low anterior resection, certainly it should be used very judiciously. Apparently in the past she was advised up to 10 a day, and she took 5 prior to her current presentation She was given a card with numbers to call with questions about her bowel function and this can be adjusted according to her response. Anticipate advance diet and discharge later today if tolerated - Problems/Diagnosis (1) Small bowel obstruction Problem: Acute
--- NOTE | 2019-05-18 11:35 | DS ---
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 insulin use: without snf use Diabetes mellitus complication status: with other specified complication Qualified Code(s): E11.69 - Type 2 diabetes mellitus with other specified complication (5) HLD (hyperlipidemia) Problem: Chronic Qualifiers: Hyperlipidemia type: unspecified Qualified Code(s): E78.5 - Hyperlipidemia, unspecified (6) GERD (gastroesophageal reflux disease) Problem: Chronic Qualifiers: Esophagitis presence: esophagitis presence not specified Qualified Code(s): K21.9 - Gastro-esophageal reflux disease without esophagitis (7) Hypothyroid Problem: Chronic Description of Stay: 74-year-old female with a past medical history of diabetes mellitus, hypertension, GERD, colon cancer status post resection, hypothyroidism, hypertension, hyperlipidemia, osteoporosis, osteoarthritis presents with complaints of abdominal pain x1 day. CT abdomen pelvis showed small bowel obstruction with transition point at the mid segment, associated with a large ventral hernia containing multiple loops of small bowel as well as a short segment of the transverse colon. She is being admitted for small bowel obstruction. Dr. Vee repeated the abdominal x-ray and it showed passage of the contrast into the colon. The NG tube was clamped and she was started on a liquid diet which she tolerated well. She was then advanced to a regular diet and did well. She is stable to be discharged home today. Follow-up with me 1 week of discharge. Procedures Performed: none Results and Findings: Lab Pending Results 05/16/19 12:00: Urine Color Yellow, Urine Appearance Slightly cloudy, Urine pH 5.5, Ur Specific [place] 1.020, Urine Protein 15 H, Urine Glucose (UA) Negative, Urine Ketones Negative, Urine Blood Negative, Urine Nitrate Negative, Urine Bilirubin Negative, Prot Sulfosalicylic Acd 1+, Urine Urobilinogen Normal, Ur Leukocyte Esterase 25 H, Urine RBC None seen, Urine WBC 5-10 H, Ur Epithelial Cells 0-5, Urine Bacteria Trace, Urine Culture Comments Culture to follow 05/16/19 12:08: WBC 12.4 H, RBC 4.63, Hgb 13.6, Hct 40.7, MCV 87.9, MCH 29.4, MCHC 33.4, RDW 14.8 H, Plt Count 271, MPV 10.9, Immature Gran % (Auto) 0.30, Immature Gran # (Auto) 0.04 H, Neutrophils % 85.1 H, Lymphocytes % 8.8 L, Monocytes % 5.1, Eosinophils % 0.4, Basophils % 0.3, Nucleated RBC % 0.0, Neutrophils # 10.6 H, Lymphocytes # 1.09 L, Monocytes # 0.6, Eosinophils # 0.1, Absolute Basophils 0.0 05/16/19 12:08: Sodium 138, Plasma Sodium 140, Potassium 3.8, Chloride 99, Carbon Dioxide 29.9, Anion Gap 12.9, BUN 23, Creatinine 1.10, Est GFR (Non-Af Amer) 52 L, BUN/Creatinine Ratio 20.9, Random Glucose 210 H, Calcium 9.6, Calcium Adj for Albumin 9.4, Total Bilirubin 0.4, AST 28, ALT 30, Alkaline Phosphatase 47 L, Total Protein 7.7, Albumin 3.9, Amylase 47, Lipase 76 05/17/19 06:00: WBC 7.3 D, RBC 4.49, Hgb 13.0, Hct 39.7, MCV 88.4, MCH 29.0, MCHC 32.7, RDW 14.9 H, Plt Count 252, MPV 11.1, Immature Gran % (Auto) 0.10, Immature Gran # (Auto) 0.01, Neutrophils % 70.7, Lymphocytes % 17.6 L, Monocytes % 10.6 H, Eosinophils % 0.6, Basophils % 0.4, Nucleated RBC % 0.0, Neutrophils # 5.1, Lymphocytes # 1.28 L, Monocytes # 0.8, Eosinophils # 0.0, Absolute Basophils 0.0 05/17/19 06:00: Sodium 138, Plasma Sodium 140, Potassium 4.6 D, Chloride 101, Carbon Dioxide 26.8, Anion Gap 14.8 H, BUN 17, Creatinine 0.83, Est GFR (Non-Af Amer) 72 D, BUN/Creatinine Ratio 20.5, Random Glucose 196 H, Calcium 9.5, Calcium Adj for Albumin 9.7, Total Bilirubin 0.7, AST 56 H, ALT 27, Alkaline Phosphatase 40 L, Total Protein 7.0, Albumin 3.3 L Discharge Location: Home Disposition: Home self-care Condition: Stable Discharge Activity: Activity as tolerated Discharge Diet: Consistent carbs, Low salt, Low fat/chol Referrals: Yanely Zavala FNP [Primary Care Provider] - Complete Home Medications List: Complete Home Medication List: Ascorbic Acid [Vitamin C] 1,000 mg PO DAILY 03/05/18 Calcium Carbonate/Vitamin D3 [Calcium 600 + Vit D 400 Softgl] 1 ea PO DAILY 03/05/18 Cholecalciferol (Vitamin D3) [Vitamin D3] 400 unit PO DAILY 03/05/18 Cyanocobalamin (Vitamin B-12) [Vitamin B-12] 500 mcg PO DAILY 03/05/18 Insulin Degludec [Tresiba Flextouch U-100] 60 unit SQ DAILY 03/05/18 Insulin Regular, Human [Novolin R] See Protocol SQ DAILY PRN 03/05/18 Levothyroxine Sodium [Synthroid] 75 mcg PO Q48H 03/05/18 Losartan/Hydrochlorothiazide [Losartan-Hctz 100-25 mg Tab] 1 ea PO DAILY 03/05/18 Metoprolol Tartrate [Lopressor] 50 mg PO DAILY 03/05/18 [place]-3 Fatty Acids/Fish Oil [Fish Oil 1,000 mg Capsule] 1 ea PO DAILY 03/05/18 Omeprazole [Prilosec] 20 mg PO DAILY 03/05/18 Oxybutynin Chloride [Ditropan Xl] 5 mg PO DAILY 03/05/18 Pyridoxine HCl (Vitamin B6) [Vitamin B-6] 100 mg PO DAILY 03/05/18 metFORMIN HCL [Metformin HCl] 1,000 mg PO BID 03/05/18 lovastatin 40 mg tablet 80 mg PO BID 04/16/18 Aspirin [Aspirin Chewable] 81 mg PO DAILY 05/16/19 Polyethylene Glycol 3350 [Miralax] 17 gm PO HS 05/16/19 Psyllium Husk (with Sugar) [Metamucil Powder] 575 gm PO HS 05/16/19 Levothyroxine Sodium [Synthroid] 50 mcg PO Q48H 05/17/19
[2019-05-18 13:46] VITALS: BP 141/53
[2019-05-18 13:52] LABS: Albumin * 3.2 gm/dl (3.4-5.0); Anion Gap 11.5 mmol/L (6.8-13.8); BUN/Creatinine Ratio 10.3 (9.0-21.6); Bilirubin, Total 0.5 mg/dL (0.0-1.1); Calcium * 8.7 mg/dL (7.9-10.9); Carbon Dioxide 28.6 mmol/L (24-32.6); Potassium 4.1 mmol/L (3.4-4.6); Total Protein 6.6 gm/dL (6.2-8.2)
[2019-05-19] MEDS ORDERED: POLYETHYLENE GLYCOL 3350 17 GM PACKET PO SCH (09:00)
== END 2019-05-18 13:37 | disposition home or self-care (01) | DRG 394 ==
LOC: ER 11:16 → MS 17:00
PROVIDERS: ADMIT Internal Medicine; ATTEND Internal Medicine
CPT/HCPCS: 36415; 71010; 71045; 74019; 74020; 74177; 80053; 81001; 82150; 83690; 85025; 87086; 96361; 96374; 99285; J2405; Q9963; Q9967